=== PATIENT | female | born 1950 | race Caucasian/White ===

== ENCOUNTER 2018-11-28 05:59 | Inpatient (IN) ==
--- NOTE | 2018-11-11 11:17 | Anesthesiology Consultation ---
Date of Service November 11, 2018 Assessment & Plan (1) Encounter for pre-operative examination: Chart Review Chart Review: Patient seen in Pre Admission Testing Consults Requested none Teaching & Discussion Pre-Anesthesia Teaching/Discussion Notes: Instructed NPO after midnight before surgery, except medications with 15 cc of water. Medication instructions provided according to the PAT guidelines. History Surgery Operation Date: 11/28/18 10:35 Proposed Procedures p L3-L4, L4-L5 Decompression, L4-L5 Fusion - Jose Armando Dow DO Height/Weight Height: 5 ft 5 in Weight: 96.3 kg Allergies Allergy/AdvReac Type Severity Reaction Status Date / Time No Known Allergies Allergy Verified 10/27/18 09:21 Medications Home Medications Medication Instructions Recorded Confirmed Last Taken acetaminophen [Tylenol Extra 500 mg PO Q6H PRN 10/27/18 10/27/18 Unknown Strength] cholecalciferol (vitamin D3) 2,000 unit PO QAM 10/27/18 10/27/18 Unknown [Vitamin D3] gabapentin 100 mg PO TID 10/27/18 10/27/18 Unknown isosorbide mononitrate 30 mg PO QAM 10/27/18 10/27/18 Unknown levothyroxine 100 mcg PO QAM 10/27/18 10/27/18 Unknown metformin 500 mg PO BID 10/27/18 10/27/18 Unknown naproxen-esomeprazole [Vimovo] 1 tab PO BID 10/27/18 10/27/18 Unknown Past Medical History Medical History Chronic back pain Diabetes mellitus, type 2 NIDDM H/O paroxysmal supraventricular tachycardia History of endometriosis Hypothyroidism Osteoarthritis Spinal stenosis Spondylolisthesis Past Surgical History Surgical History History of abdominal surgery OPEN; R/T ENDOMETRIOSIS History of anesthesia reaction SLOW TO WAKE History of cardiac cath 2017 - [facility] - SVT - NO STENTS/ANGIOPLASTY - FOLLOWS W/ DR. RAMOS ([facility]) History of colonoscopy History of esophagogastroduodenoscopy (EGD) History of toe surgery LEFT GREAT TOE History of tonsillectomy Nausea and vomiting after administration of anesthetic agent Past Anesthesia History No Hx of Anesthesia Complications (Has been slightly slow to wake (Is tired the rest of the day)) and No Family Hx of Anesthesia Complications History of PONV Yes Motion Sickness Screening History of Motion Sickness: Yes Social History Smoking Status: Never smoker Do You Dip or Chew Tobacco: No Hx Alcohol Use: Yes Alcohol type: wine alcohol intake frequency: holidays/special occasions only Hx Substance Use: No substance use type: does not use Exercise / Class Metabolic Activity II 4-5 Yardwork/Stairs/Walk up hill (Able to climb FOS. Denies CP or SOB. ) Review of Systems Patient denies chest pain, shortness of breath, dyspnea on exertion, reflux, cough, wheezing, palpitations. +joint pain (Back, hands) Physical Exam Vital Signs BP: 137/95 P: 85 R: 18 T: 98.0 SPO2: 97% on RA ENMT Thyromental Distance: > or= 3.5 Finger Breadths (3.5) Mallampati Class: II Neck normal visual inspection and trachea midline; neck extension not limited Respiratory normal respiratory effort Auscultation: lungs clear to auscultation bilaterally Cardiovascular Rate/Rhythm: regular rate and regular rhythm Heart Sounds: no murmur Vessels: no carotid bruit Neurologic moves all extremities Psychiatric Orientation: alert and oriented x 3 Testing Electrocardiogram Date: 11/11/18 Findings: + NSR @ (78) Chest X-Ray Date: 11/11/18 Findings: + NAD FINDINGS: The bones soft tissues and hemidiaphragms are normal. The cardiomediastinal silhouette is normal. The lungs are clear. The pulmonary vasculature is normal. IMPRESSION: Negative chest. Stress Test Date: 12/26/16 Type: exercise Findings: + WNL Resting EF: 55% Resting LV Function: normal Resting RWMA: + none Valvular Disease: no significant valvular disease A maximum of 10.1 METS activity was achieved with 97% MPHR. During the exercise portion, the EKG showed sinus tachycardia with an ST-T change of 1.0mm and up- sloping ST depression. Impression: 1. Stress EKG is negative for myocardial ischemia at 97% of MPHR. 2. Stress ECHO is negative for RWMA. Cardiac Catheterization Date: 01/25/17 Findings: + normal Intervention: + none Left heart catheterization. Assessment: 1. Very mild CAD 2. Normal LV systolic function 3. No significant 4. No significant MR PLAN: 1. Maximize medical therapy for primary prevention. 2. Diet, exercise, and lifestyle modifications were discussed. 3. Follow up with interface developer 4-6 weeks post discharge. 4. She had some typical sounding symptoms which were relieved by Imdur. There may be a component of small vessel disease or spasm. We will likely continue the Imdur moving forward. Laboratory Results 11/11/18 11:45 11/11/18 11:45 Blood Type O Positive 11/11/18 11:45 Antibody Screen NEGATIVE 11/11/18 11:45 PT 10.0 Seconds (9.0-12.0) 11/11/18 11:45 INR 1.0 (0.9-1.1) 11/11/18 11:45 APTT 26.3 Seconds (21.0-31.0) 11/11/18 11:45 Urine Color Dark Yellow 11/11/18 Unknown Urine Appearance Clear (Clear) 11/11/18 Unknown Urine pH 5.0 (4.5-7.5) 11/11/18 Unknown Ur Specific [place] 1.030 (1.000-1.030) 11/11/18 Unknown Urine Protein Negative (Negative) 11/11/18 Unknown Urine Glucose (UA) Negative (Negative) 11/11/18 Unknown Urine Ketones Trace (Negative) H 11/11/18 Unknown Urine Nitrite Negative (Negative) 11/11/18 Unknown Ur Leukocyte Esterase 1+ (Negative) H 11/11/18 Unknown Urine WBC (Auto) 5-10 /hpf (0-5) H 11/11/18 Unknown Urine RBC (Auto) 0-4 /hpf (0-4) 11/11/18 Unknown U Hyaline Cast (Auto) 1-5 /lpf (0-5) 11/11/18 Unknown U Epithel Cells (Auto) >30 /lpf (0-5) H 11/11/18 Unknown Urine Bacteria (Auto) Negative (Negative) 11/11/18 Unknown
--- NOTE | 2018-11-11 11:17 | PAT Medication Instructions ---
Medication Instructions Date of Service November 11, 2018 Home Medications acetaminophen [Tylenol] 500 mg PO Q6H NEEDED cholecalciferol (vitamin D3) 2,000 unit PO QAM gabapentin 100 mg PO TID isosorbide mononitrate 30 mg PO QAM levothyroxine 100 mcg PO QAM metformin 500 mg PO BID naproxen-esomeprazole [Vimovo] 1 tab PO BID ASK your surgeon for instructions naproxen-esomeprazole [Vimovo] 1 tab PO BID - stop taking 1 week before surgery DO NOT take the morning of surgery cholecalciferol (vitamin D3) 2,000 unit PO QAM metformin 500 mg PO BID Take morning of surgery With a small sip of water, OTHERWISE NOTHING TO EAT OR DRINK AFTER MIDNIGHT: acetaminophen [Tylenol] 500 mg PO Q6H NEEDED gabapentin 100 mg PO TID isosorbide mononitrate 30 mg PO QAM levothyroxine 100 mcg PO QAM metformin 500 mg PO BID Take evening before surgery acetaminophen [Tylenol] 500 mg PO Q6H NEEDED gabapentin 100 mg PO TID metformin 500 mg PO BID Other Notes If you have any questions please call us at [phone] or [phone] or [phone] or [phone]
--- NOTE | 2018-11-11 12:25 | XRay Report ---
XR chest Pre-admission PA/Lat CLINICAL HISTORY: pat preoperative evaluation COMPARISON STUDY: No previous studies for comparison. FINDINGS: The bones soft tissues and hemidiaphragms are normal. The cardiomediastinal silhouette is n ormal. The lungs are clear. The pulmonary vasculature is normal. IMPRESSION: Negative chest. The above report was generated using voice recognition software. It may contain grammatical, syntax or spelling errors. Electronically signed by: Arnoldo Sarmiento M.D. 11/11/2018 12:23 PM
[2018-11-11 14:15] LABS: Basophils # (auto) 0.01 K/uL (0-0.2); Basophils % (auto) 0.1 %; Eosinophils % (auto) 2.9 %; Hematocrit (blood only) 38.9 % (37-47); Hemoglobin 12.8 g/dL (12.0-16.0); Immature Granulocytes # (auto) 0.01 K/uL (0.00-0.02); Immature Granulocytes % (auto) 0.1 %; Lymphocytes # (auto) 2.18 K/uL (1.2-3.4); Mean Corpuscular Hgb Conc 32.9 g/dL (32-36); Mean Corpuscular Volume 87.6 fL (80-100); Mean Platelet Volume 9.6 fL (7.4-10.4); Monocytes # (auto) 0.53 K/uL (0.11-0.59); Monocytes % (auto) 7.8 %; Neutrophils # (auto) 3.89 K/uL (1.4-6.5); Neutrophils % (auto) 57.1 %; Platelet Count 330 K/uL (130-400); RDW Coefficient of Variation 15.9 % (11.5-14.5); RDW Standard Deviation 51.6 fL (36.4-46.3); Red Blood Count 4.44 M/uL (4.2-5.4); White Blood Count 6.82 K/uL (4.8-10.8)
[2018-11-11 14:22] LABS: BUN Creatinine Ratio 26.6 (10-20); Calcium 9.1 mg/dl (8.5-10.1); Creatinine Clr Calc Pharmacy 77.5 ml/min; Est GFR (African American) 86.4; Est GFR (Non-African American) 74.6; Potassium 4.2 mmol/L (3.5-5.1)
[2018-11-11 14:30] LABS: Partial Thromboplastin Time 26.3 Seconds (21.0-31.0)
[2018-11-11 14:41] LABS: Appearance Urine Clear (Clear); Bacteria Urine Automated Negative (Negative); Blood Urine Negative (Negative); Color Urine Dark Yellow; Epithelial Cell Urine Auto >30 /lpf (0-5); Glucose Urine UA Negative (Negative); Ketones Urine Trace (Negative); Leukocyte Esterase Urine 1+ (Negative); Nitrite Urine Negative (Negative); Protein Urine Negative (Negative); RBC Urine Automated 0-4 /hpf (0-4); Urobilinogen Urine Negative (Negative)
[2018-11-11 14:45] LABS: Bilirubin Urine Negative (Negative); Ictotest Urine Negative (Negative)
[2018-11-28] MEDS ORDERED: LR 15ML/HR IV SCH (06:00)
[2018-11-28] MEDS ORDERED: CeleBREX 200 MG CAP PO SCH (06:00)
[2018-11-28] MEDS ORDERED: CEFAZOLIN 2000MG 2,000 MG/15 ML SYR IV SCH (06:00)
[2018-11-28] MEDS ORDERED: ACETAMINOPHEN 500 MG TAB PO SCH (06:00)
[2018-11-28] MEDS ORDERED: GABAPENTIN 300 MG PO SCH (06:00)
[2018-11-28] MEDS ORDERED: SCOPOLAMINE 1.5 MG TDSY TD SCH (06:00)
[2018-11-28] MEDS ORDERED: MIDAZOLAM HCL 1 MG/ML 2ML VIAL ONE (06:32)
[2018-11-28] MEDS ORDERED: fentaNYL citrate 100 MCG/2 ML VIAL ONE ×4 (06:32→09:48)
[2018-11-28] MEDS ORDERED: HYDROmorphone INJ 2 MG/ML SYR/VIAL ONE (06:32)
[2018-11-28] MEDS ORDERED: LIDOCAINE HCL 2% 2 ML VIAL/AMP(20MG/ML) INFIL ONE (06:33)
[2018-11-28] MEDS ORDERED: DEXAMETHASONE SOD INJ 4 MG/ML VIAL ONE (06:33)
[2018-11-28] MEDS ORDERED: PROPOFOL IV EMULSION 10 MG/ML 20 ML VIAL IV ONE (06:33)
[2018-11-28] MEDS ORDERED: ROCURONIUM BROMIDE 10 MG/ML 5 ML VIAL ONE (06:33)
[2018-11-28] MEDS ORDERED: ONDANSETRON INJ 2 MG/ML 2 ML VIAL ONE (06:33)
[2018-11-28] MEDS ORDERED: NEOSTIGMINE METHYLSULFATE 5 MG/5 ML SYR ONE (06:33)
[2018-11-28] MEDS ORDERED: GLYCOPYRROLATE 0.2 MG/ML VIAL ONE ×2 (06:33→09:38)
[2018-11-28] MEDS ORDERED: BUPIVACAINE/EPINEPHRINE 0.5% MPF 1:200,000 30 ML VIAL ONE (07:01)
[2018-11-28] MEDS ORDERED: BACITRACIN INJ 50,000 UNIT VIAL ONE (07:01)
[2018-11-28] MEDS ORDERED: PHENYLEPHRINE 100MCG/ML 5ML SYR IV PRN (07:17)
[2018-11-28] MEDS ORDERED: HYDROmorphone INJ 1 MG/ML SYRINGE IV PRN ×2 (07:17→12:09)
[2018-11-28] MEDS ORDERED: fentaNYL citrate 100 MCG/2 ML VIAL IV PRN (07:17)
[2018-11-28] MEDS ORDERED: ATROPINE SULFATE 0.1 MG/ML 10ML SYR IV PRN (07:17)
[2018-11-28] MEDS ORDERED: ONDANSETRON INJ 2 MG/ML 2 ML VIAL IV PRN ×2 (07:17→11:25)
[2018-11-28] MEDS ORDERED: MEPERIDINE HCL 25 MG/ML CARP IV PRN (07:17)
[2018-11-28] MEDS ORDERED: LABETALOL HCL IV 5 MG/ML 20ML IV PRN (07:17)
[2018-11-28] MEDS ORDERED: ePHEDrine sulfate 50 MG/ML AMP IV PRN (07:17)
--- NOTE | 2018-11-28 07:30 | History & Physical Bridge Note ---
Date of Service November 28, 2018 History & Physical Bridge Note I have examined the patient, reviewed the History & Physical and in the interval since the performance of the History & Physical I have noted the following changes of clinical significance: no changes noted
--- NOTE | 2018-11-28 07:31 | History & Physical Report ---
Date of Service November 28, 2018 Assessment & Plan (1) Neurogenic claudication due to lumbar spinal stenosis: L3-4 L4-5 decompression L4-5 fusion Present on Admission?: Yes History of Present Illness Chief Complaint: Back and bilateral leg pain Primary Care Provider: Franco Roberts This is a 68-year-old female presents with chronic persistent back and bilateral leg pain. After failing extensive course of nonoperative care she is here for surgical intervention. Allergies Allergy/AdvReac Type Severity Reaction Status Date / Time No Known Allergies Allergy Verified 11/28/18 06:17 Home Medications Home Medications Medication Instructions Recorded Confirmed Type acetaminophen [Tylenol Extra 500 mg PO Q6H PRN 10/27/18 11/28/18 History Strength] cholecalciferol (vitamin D3) 2,000 unit PO QAM 10/27/18 11/28/18 History [Vitamin D3] gabapentin 100 mg PO TID 10/27/18 11/28/18 History isosorbide mononitrate 30 mg PO QAM 10/27/18 11/28/18 History levothyroxine 100 mcg PO QAM 10/27/18 11/28/18 History metformin 500 mg PO BID 10/27/18 11/28/18 History naproxen-esomeprazole [Vimovo] 1 tab PO BID 10/27/18 11/28/18 History Past Med/Surg History Social History Preferred Language: Greek Communication Ability: Effective Chair Mender Required: No Beliefs That Will Affect Care: None Current Living Situation: Spouse Other Information That Helps Us Care for You: No Feels Safe at Home: Yes Safety Concerns: Feels Safe At This Time Smoking Status: Never smoker Hx Alcohol Use: Yes Hx Substance Use: No Physical Exam Vital Signs (Past 24 Hours): Last Vital Signs Temp 36.6 C 11/28/18 06:24 Pulse 87 11/28/18 06:24 Resp 18 11/28/18 06:24 BP 156/86 H 11/28/18 06:24 Pulse Ox 95 11/28/18 06:24 Results & Data Medications Administered Acetaminophen (Tylenol) 1,000 mg PO PREOP RAMA Stop: 11/28/18 18:00 Last Admin: 11/28/18 06:43 Dose: 1,000 mg Documented by: [id number] Celecoxib (Celebrex) 200 mg PO PREOP RAMA Stop: 11/28/18 18:00 Last Admin: 11/28/18 06:43 Dose: 200 mg Documented by: [id number] Gabapentin (Neurontin) 300 mg PO PREOP RAMA Stop: 11/28/18 18:00 Last Admin: 11/28/18 06:43 Dose: 300 mg Documented by: [id number] Lactated Ringer's (Lr) 1,000 mls @ 15 mls/hr IV .Q24H RAMA Stop: 11/29/18 05:59 Last Admin: 11/28/18 06:43 Dose: 15 mls/hr Documented by: [id number] Scopolamine (Transderm-Scop) 1.5 mg TD PREOP RAMA Stop: 11/28/18 18:00 Last Admin: 11/28/18 06:44 Dose: 1.5 mg Documented by: [id number]
[2018-11-28] MEDS ORDERED: LARYING-O-JET KIT (LTA) ONE (08:39)
[2018-11-28] MEDS ORDERED: FLOSEAL HEMOSTATIC MATRIX 10ML TOP ONE (09:34)
[2018-11-28] MEDS ORDERED: KETOROLAC 30 MG/ML VIAL ONE (09:38)
[2018-11-28] MEDS ORDERED: PHENYLEPHRINE 100MCG/ML 5ML SYR ONE (09:38)
--- NOTE | 2018-11-28 09:48 | Fluoroscopy Report ---
FL lumbar spine 2-3V CLINICAL HISTORY: 68 years-old Female presenting with L3=L5 DECOMPRESSION AND L4-L5 FUSION. TECHNIQUE: 2 fluoroscopic image(s) recorded as part of an intraoperative procedure. COMPARISON: None. FINDINGS/IMPRESSION: Posterior bilateral transpedicular screw and josseline fixation of L4-5 with L4 laminectomy and interbody s pacer. Surgical material projects over the sacrum. Please see surgical report for further details. Fluoroscopy dosage (mGy): 14.76. Fluoroscopy time: 15.7 seconds. Number or time of high level fluoroscopy (HLF), digital spot, or digital subtraction: 0. Electronically signed by: Ryne Velarde M.D. 11/28/2018 9:47 AM
--- NOTE | 2018-11-28 10:01 | Operative Report ---
Post Operative Report Pre & Post Diagnosis Operation Date: 11/28/18 07:45 Pre-Op Diagnosis: Lumbar Region Radiculopathy Post-Op Diagnosis: Lumbar Region Radiculopathy Procedure Operation Date: 11/28/18 07:45 Actual Procedures #1 lumbar decompression bilateral medial facetectomies foraminotomies L3-4 L4-5 per #2 posterior spinal fusion L3-4 L4-5 per #3 placement posterior ins trumentation L4-5. #4 interbody fusion L4-5 per #5 placement of titanium 13 x 22 mm cage at L4-5. #6 placement of local autograft in the posterior lateral gutters. #7 placement Feese collagen sponge, mass graft in the posterior gutters and ostial amp and interbody space. Surgeon Jose Armando Dow, Studio Receptionist None Estimated Blood Loss 475 Findings Consistent with Post-Op Diagnosis Specimens None Description of Procedure Patient was met with preoperatively case discussed all questions addressed. After informed consent obtained patient was taken to the operative suite underwent intubation placed in a prone position on the Santiago table on top of the Lucien frame. All bony prominences well-padded eyes inspected to ensure no external pressure placed upon the. This point the lumbar spine was prepped and draped in a normal sterile fashion. Sharp dissection the assistance pericardial performed down to and exposing the lamina and transverse process of L3 L4-5 bila terally. Massive facet hypertrophy was appreciated. Complete laminectomy of L4 partial laminectomy of L3 was performed and bilateral medial facetectomies foraminotomies to address severe stenosis. Pedicle screws were then placed in L4 and L5 bilaterally with assistance of fluoroscopy and process josseline placed. Through a trans-foraminal approach and left complete discectomy was performed in plate coated to subcortical B bone and a 13 x 22 mm titanium cage filled with ostium bone graft tapped in position. Rods were then compressed locked in final position bilaterally. The transverse process of L3-L4 fiber 2 subcortical mean bone. Infuse collagen sponge mass graft local autograft placed in the posterior gutters. 15 round TIFFANY drain inserted. Incision was then closed with 1 Vicryl fascia 2-0 Vicryl subtenons seen for Monocryl for Fransen closure Steri-Strip sterile dressings placed. Patient will continue to PACU stable condition. I attest to the content of the Intraoperative Record and any orders documented therein. Any exceptions are noted below.
[2018-11-28] MEDS ORDERED: ESMOLOL HCL INJ 10 MG/ML 10ML VIAL IV ONE (10:12)
[2018-11-28] MEDS ORDERED: VOLUVEN IN NSS IV ONE (10:13)
--- NOTE | 2018-11-28 10:28 | Anesthesiology Progress Note ---
Date of Service November 28, 2018 Anesthesia Post Procedure Vital Signs Vital Signs: Temp Pulse Pulse Resp BP Pulse Ox 11/28/18 10:20 75 12 142/91 H 100 11/28/18 10:10 80 16 125/76 99 11/28/18 10:04 36.6 C 79 18 135/70 99 11/28/18 06:24 36.6 C 87 18 156/86 H 95 Pain Intensity Lower Back: Pain Intensity: 0 Notes Mental Status: alert / awake / arousable Patient Amnestic to Procedure: Yes Nausea / Vomiting: adequately controlled Pain: adequately controlled Airway Patency, RR, SpO2: stable & adequate BP & HR: stable & adequate Hydration State: stable & adequate Anesthetic Complications: no major complications apparent and Pt Satisfied with anesthetic care
[2018-11-28] MEDS ORDERED: ALUMINUM/MAGNESIUM SUSP 30 ML UDC PO PRN (11:25)
[2018-11-28] MEDS ORDERED: MAGNESIUM HYDROXIDE SUSP 30 ML UDC PO PRN (11:25)
[2018-11-28] MEDS ORDERED: FAMOTIDINE 20 MG TAB PO PRN (11:25)
[2018-11-28] MEDS ORDERED: ONDANSETRON 4 MG TAB PO PRN (11:25)
[2018-11-28] MEDS ORDERED: SOD PHOSPHATE/SOD BIPHOSPHATE ENEMA 132 ML BTL PR PRN (11:25)
[2018-11-28] MEDS ORDERED: ACETAMINOPHEN 1,000 MG/100 ML VIAL IV PRN (11:25)
[2018-11-28] MEDS ORDERED: BISACODYL 10 MG SUPP PR PRN (11:25)
[2018-11-28] MEDS ORDERED: LORazepam 0.5 MG TAB PO PRN (11:25)
[2018-11-28] MEDS ORDERED: ACETAMINOPHEN 500 MG TAB PO PRN ×2 (11:25)
[2018-11-28] MEDS ORDERED: PROMETHAZINE HCL 12.5 MG in SODIUM CHLORIDE 0.9% 50 ML IV PRN (11:25)
[2018-11-28] MEDS ORDERED: DO NOT ADMINISTER FLU VACCINE PRN (11:25)
[2018-11-28] MEDS ORDERED: DO NOT ADMINISTER PNEUMOCOCCAL VACCINE PRN (11:25)
[2018-11-28] MEDS ORDERED: HYDROmorphone INJ 0.5 MG/0.5 ML SYR IV PRN (11:25)
[2018-11-28] MEDS ORDERED: METOCLOPRAMIDE HCL INJ 5 MG/ML 2 ML VIAL IV PRN (11:25)
[2018-11-28] MEDS ORDERED: LORazepam 0.5 MG/1 ML VIAL IV PRN (11:25)
[2018-11-28] MEDS ORDERED: GLUCAGON FOR INJ 1 MG VIAL SQ PRN (11:35)
[2018-11-28] MEDS ORDERED: GLUCOSE 40% GEL 15 GM TUBE PO PRN (11:35)
[2018-11-28] MEDS ORDERED: CARBOHYDRATES FOR HYPOGLYCEMIA PO PRN (11:35)
[2018-11-28] MEDS ORDERED: GLUCOSE 10 TABS/TUBE PO PRN (11:35)
[2018-11-28] MEDS ORDERED: DEXTROSE 50% 50 ML SYRINGE IV PRN (11:35)
[2018-11-28] MEDS: SODIUM CHLORIDE 0.9% 1000ML 1,000 ML IV SCH ×2 (11:56→19:05)
--- NOTE | 2018-11-28 12:06 | Internal Medicine Consult Note ---
Date of Consultation November 28, 2018 Assessment & Plan (1) Neurogenic claudication due to lumbar spinal stenosis: Status post lumbar decompression involving L3/4, L4/5 and fusion involving L4/5 Management as per Orth of Present on Admission?: Yes (2) Status post lumbar spine operative procedure for decompression of spinal cord: Status post lumbar decompression involving L3/4, L4/5 and fusion involving L4/5 Has minimal pain at the back Does not have any radiculopathic pain Management as per Orth Present on Admission?: Yes (3) Diabetes type 2, uncontrolled: Has been on metformin as an outpatient Check blood sugar and will put her on sliding scale insulin coverage Hold metformin now Check hemoglobin A1c tomorrow (4) Hypothyroidism (acquired): Continue replacement (5) SVT (supraventricular tachycardia): Heart rate remains controlled and regular rhythm Will check electrolytes DVT prophylaxis as per orthopedic Dr. Sky will follow this patient from tomorrow. History of Present Illness Reason for Consultation: Medical management following lumbar surgery Attending Physician: Jose Armando Dow, DO History of Present Illness She is a 68 years old female with significant past medical history of diabetes type 2 on metformin, hypo-thyroidism and SVT apparently underwent lumbar decompression and fusion by Dr. Dow today. She has had preop evaluation before surgery and her apparent blood test including chest x-ray and EKG were unremarkable. She complains to have some pain at the back but does not have any other significant symptoms she denies any chest pain, shortness of breath., Palpitation, headache any blurred vision or any other neuro symptoms, abdominal pain nausea and/or vomiting. Allergies Allergy/AdvReac Type Severity Reaction Status Date / Time No Known Allergies Allergy Verified 11/28/18 06:17 Home Medications Home Medications Medication Instructions Recorded Confirmed Type acetaminophen [Tylenol Extra 500 mg PO Q6H PRN 10/27/18 11/28/18 History Strength] cholecalciferol (vitamin D3) 2,000 unit PO QAM 10/27/18 11/28/18 History [Vitamin D3] gabapentin 100 mg PO TID 10/27/18 11/28/18 History isosorbide mononitrate 30 mg PO QAM 10/27/18 11/28/18 History levothyroxine 100 mcg PO QAM 10/27/18 11/28/18 History metformin 500 mg PO BID 10/27/18 11/28/18 History naproxen-esomeprazole [Vimovo] 1 tab PO BID 10/27/18 11/28/18 History Patient History Social History Preferred Language: Burundian Communication Ability: Effective House Wirer Helper Required: No Beliefs That Will Affect Care: None Current Living Situation: Spouse Other Information That Helps Us Care for You: No Feels Safe at Home: Yes Safety Concerns: Feels Safe At This Time Smoking Status: Never smoker Hx Alcohol Use: Yes Hx Substance Use: No Review of Systems No apparent distress at rest. Review of systems as in history of present illness Physical Exam Vital Signs (Past 24 Hours): Last Vital Signs Temp 36.4 C L 11/28/18 11:43 Pulse 70 11/28/18 11:43 Resp 18 11/28/18 11:43 BP 113/60 11/28/18 11:43 Pulse Ox 97 11/28/18 11:43 Physical Exam: Lying in bed comfortably Constitutional: WD/WN, vitals as above well developed and well nourished; no acute distress Eyes: PERRL, conjunctivae normal, anicteric sclerae ENMT: external ear and nose normal, oropharynx normal Neck: trachea midline, no thyromegaly Respiratory: normal respiratory effort, lungs clear to auscultation Cardiovascular: Rate/Rhythm: regular rate and regular rhythm Heart Sounds: normal S1 and normal S2; no murmur Gastrointestinal (Abdomen): normal bowel sounds, soft, nontender, no hepatosplenomegaly Musculoskeletal: No acute arthritis involving any joints Neurologic: PERRL, EOMI, accommodation nl, no face palsy, no dysarthria Psychiatric: A+Ox3, euthymic affect Results & Data Medications Administered Current Inpatient Medications Acetaminophen (Tylenol) 1,000 mg PO Q8H PRN PRN Reason: MILD Pain Rating 1,2,3 Stop: 12/28/18 11:24 Acetaminophen (Tylenol) 500 mg PO Q6H PRN PRN Reason: Pain Stop: 12/28/18 11:24 Al Hydrox/Mg Hydrox/Simethicone (Maalox) 30 ml PO Q6H PRN PRN Reason: Dyspepsia Stop: 12/28/18 11:24 Bisacodyl (Dulcolax) 10 mg CO DAILY PRN PRN Reason: Constipation Stop: 12/28/18 11:24 Dextrose (Dextrose 50%) 25 - 50 ml IV UD PRN; Protocol PRN Reason: Hypoglycemia Protocol Stop: 12/28/18 11:34 Diphenhydramine HCl (Benadryl Capsule) 25 mg PO Q6H PRN PRN Reason: Allergic Rhinitis/Insomnia Stop: 12/28/18 11:24 Famotidine (Pepcid) 20 mg PO Q12H PRN PRN Reason: Dyspepsia Stop: 12/28/18 11:24 Gabapentin (Neurontin) 100 mg PO TID RAMA Stop: 12/28/18 13:59 Glucagon (Glucagen) 1 mg SQ UD PRN; Protocol PRN Reason: Hypoglycemia Protocol Stop: 12/28/18 11:34 Glucose (Dex4 Glucose) 4 - 8 tabs PO UD PRN; Protocol PRN Reason: Hypoglycemia Protocol Stop: 12/28/18 11:34 Glucose (Glucose 40%) 15 - 30 gm PO UD PRN; Protocol PRN Reason: Hypoglycemia Protocol Stop: 12/28/18 11:34 Hydromorphone HCl (Dilaudid) 0.5 - 1 mg IV Q3H PRN PRN Reason: Pain Stop: 12/12/18 11:24 Hydroxyzine HCl (Vistaril) 25 mg PO Q8H PRN PRN Reason: Anxiety Stop: 12/28/18 11:24 Cefazolin Sodium (Ancef 2000mg) 2,000 mg in 15 mls @ 3.75 mls/min IV Q8H RAMA; Protocol Stop: 11/28/18 19:28 Acetaminophen (Ofirmev) 1,000 mg in 100 mls @ 400 mls/hr IV Q8 PRN PRN Reason: MILD Pain Rating 1,2,3 Stop: 12/28/18 11:24 Lorazepam (Ativan) 0.5 mg in 1 mls @ 0.5 mls/min IV Q8H PRN PRN Reason: Sedation/Anxiety Stop: 12/28/18 11:24 Sodium Chloride (Nss 1000ml) 1,000 mls @ 150 mls/hr IV .Q6H40M [facility] Stop: 12/28/18 11:24 Last Admin: 11/28/18 11:56 Dose: 150 mls/hr Documented by: Promethazine HCl 12.5 mg/ (Sodium Chloride) 50.5 mls @ 204 mls/hr IV Q6H PRN PRN Reason: Nausea &/or Vomiting Stop: 12/28/18 11:24 Insulin Aspart (Novolog Flexpen) 0 units SC ACHS [facility] Stop: 12/28/18 16:29 Isosorbide [facility]onitrate ([facility]ur Extended Rel) [facility] [place]: 12/29/18 08:59 Ketorolac Tromethamine (Toradol) 15 mg IV Q6H [facility] Stop: 11/29/18 05:26 Levothyroxine Sodium (Synthroid) 100 mcg PO [facility] Stop: 12/29/18 08:59 Lorazepam (Ativan) 0.5 mg PO Q8H PRN PRN Reason: Sedation/Anxiety Stop: 12/28/18 11:24 Magnesium Hydroxide (Milk Of Magnesia) 30 ml PO DAILY PRN PRN Reason: Constipation Stop: 12/28/18 11:24 Metoclopramide HCl (Reglan) 10 mg IV Q6H PRN PRN Reason: Nausea &/or Vomiting Stop: 12/28/18 11:24 Miscellaneous (Pneumococcal Vacc, Do Not Administer) 1 ea N/A PRN PRN PRN Reason: Notification Stop: 12/28/18 11:24 Miscellaneous (Flu Vaccine, Do Not Administer) 1 ea N/A PRN PRN PRN Reason: Notification Stop: 12/28/18 11:24 Miscellaneous (Carbohydrates For Hypoglycemia) 15 - 30 gm PO UD PRN PRN Reason: Hypoglycemia Treatment Stop: 12/28/18 11:34 Non-Formulary Medication (Cholecalciferol (Vitamin D3) [Vitamin D3]) 2,000 units PO [facility] Stop: 12/29/18 08:59 Non-Formulary Medication (Naproxen-Esomeprazole [Vimovo]) 1 tab PO BID [facility] Stop: 12/28/18 20:59 Ondansetron HCl (Zofran) 4 mg IV Q6H PRN PRN Reason: Nausea &/or Vomiting Stop: 12/28/18 11:24 Ondansetron HCl (Zofran) 4 mg PO Q6H PRN PRN Reason: Nausea Stop: 12/28/18 11:24 Oxycodone HCl (Roxicodone Immediate Rel) 5 - 10 mg PO Q4H PRN PRN Reason: Moderate-Severe Pain Stop: 12/12/18 11:24 Polyethylene Glycol (Miralax Powder Packet) 17 gm PO Q6 RAMA Stop: 12/29/18 05:59 Senna/Docusate Sodium (Senokot S) 2 tab PO HS RAMA Stop: 12/28/18 20:59 Sodium Biphosphate/Sodium Phosphate (Fleet Enema) 132 ml CO ONE PRN PRN Reason: Constipation Stop: 12/28/18 11:24 Tramadol HCl (Ultram) 50 - 100 mg PO Q4H PRN PRN Reason: Moderate-Severe pain Stop: 12/28/18 11:24
[2018-11-28] MEDS: INSULIN ASPART 100 UNITS/ML 3 ML PEN SC SCH ×3 (13:12→21:39)
[2018-11-28] MEDS: KETOROLAC TROMETHAMINE 15 MG/ML VIAL IV SCH ×2 (13:42→21:28)
[2018-11-28] MEDS ORDERED: CHECK SCOPOLAMINE PATCH PLACEMENT SCH (16:00)
[2018-11-28] MEDS: TRAMADOL HCL 50 MG TABLET PO PRN ×2 (16:02→21:29)
[2018-11-28] MEDS: CEFAZOLIN 2000MG 2,000 MG/15 ML SYR IV SCH (16:13)
[2018-11-28] MEDS ORDERED: ESOMEPRAZOLE PO SCH (21:00)
[2018-11-28] MEDS ORDERED: NAPROXEN PO SCH (21:00)
[2018-11-28] MEDS: GABAPENTIN 100 MG CAP PO SCH ×2 (21:30→21:31)
[2018-11-28] MEDS: DOCUSATE SODIUM/SENNA 50/8.6MG TAB PO SCH (22:12)
[2018-11-29] MEDS: CEFAZOLIN 2000MG 2,000 MG/15 ML SYR IV SCH (00:16)
[2018-11-29] MEDS: SODIUM CHLORIDE 0.9% 1000ML 1,000 ML IV SCH (00:17)
[2018-11-29] MEDS: KETOROLAC TROMETHAMINE 15 MG/ML VIAL IV SCH ×2 (02:17→07:22)
[2018-11-29] MEDS: LEVOTHYROXINE SODIUM 100 MCG TABLET PO SCH (05:50)
[2018-11-29] MEDS: POLYETHYLENE (MIRALAX) 17 GM PACK PO SCH ×4 (05:50→23:45)
[2018-11-29 06:19] LABS: Basophils # (auto) 0.01 K/uL (0-0.2); Basophils % (auto) 0.1 %; Eosinophils # (auto) 0.01 K/uL (0-0.5); Eosinophils % (auto) 0.1 %; Hematocrit (blood only) 27.2 % (37-47); Hemoglobin 8.9 g/dL (12.0-16.0); Immature Granulocytes # (auto) 0.03 K/uL (0.00-0.02); Immature Granulocytes % (auto) 0.3 %; Lymphocytes # (auto) 1.45 K/uL (1.2-3.4); Lymphocytes % (auto) 15.8 %; Mean Corpuscular Hgb Conc 32.7 g/dL (32-36); Mean Corpuscular Volume 87.7 fL (80-100); Mean Platelet Volume 9.4 fL (7.4-10.4); Monocytes # (auto) 0.74 K/uL (0.11-0.59); Monocytes % (auto) 8.1 %; Neutrophils # (auto) 6.92 K/uL (1.4-6.5); Neutrophils % (auto) 75.6 %; Platelet Count 231 K/uL (130-400); RDW Standard Deviation 51.3 fL (36.4-46.3); White Blood Count 9.16 K/uL (4.8-10.8)
[2018-11-29 06:47] LABS: RBC Morphology Unremarkable
[2018-11-29 06:51] LABS: BUN Creatinine Ratio 21.8 (10-20); Calcium 7.6 mg/dl (8.5-10.1); Creatinine Clr Calc Pharmacy 85.6 ml/min; Est GFR (African American) 97.8; Est GFR (Non-African American) 84.4; Magnesium 1.9 mg/dl (1.8-2.4); Potassium 4.1 mmol/L (3.5-5.1)
[2018-11-29 07:12] LABS: Estimated Average Glucose 143 mg/dl; Hemoglobin A1C 6.6 % (4.5-5.6)
--- NOTE | 2018-11-29 08:32 | Orthopedic Progress Note ---
Date of Service November 29, 2018 Assessment & Plan (1) Status post lumbar spine operative procedure for decompression of spinal cord: Postoperative day 1 lumbar decompression fusion L4-5. She is doing well. She will start physical therapy this morning. Maintain TIFFANY drain. DVT prophylaxis is in the form of teds and SCDs. Continue with pain control. Anticipate discharge home Saturday. Supervising Physician Co-Signing Physician Notes Dr. Jose Armando Dow Jhon Strickland is postoperative day 1 lumbar decompression L3 through 5 with instrumented fusion of L4-5. She states she has some increase in her lower back pain this morning but no radicular leg pain. TIFFANY drain output was 190 cc. H&H is stable. She has been up and ambulatory to the restroom. No new complaints. Physical Exam Vital Signs (Past 24 Hours): Last Vital Signs Temp 37.1 C 11/29/18 08:27 Pulse 68 11/29/18 08:27 Resp 16 11/29/18 08:27 BP 127/81 11/29/18 08:27 Pulse Ox 92 11/29/18 08:27 Physical Exam: Alert and oriented x3. No obvious distress. Lumbar dressing is clean dry and intact. Lower extremities NATASHA hose intact bilaterally. Calves are soft nontender bilate rally. Strength is intact bilateral lower extremities. Constitutional: well developed Eyes: normal visual josue by confrontation ENMT: external ear and nose normal, oropharynx normal Neck: normal visual inspection Respiratory: normal respiratory effort Cardiovascular: Rate/Rhythm: regular rate Extremities: normal capillary refill Gastrointestinal (Abdomen): Inspection/Auscultation: abdomen normal to inspection Musculoskeletal: no cyanosis or clubbing, extremities motor strength 5/5 Skin: no rashes, warm and dry Neurologic: patellar DTR's 2+ bilat, sensation intact deep tendon reflexes 2+ bilaterally and moves all extremities Psychiatric: A+Ox3, euthymic affect
[2018-11-29] MEDS: INSULIN ASPART 100 UNITS/ML 3 ML PEN SC SCH ×4 (08:58→21:33)
[2018-11-29] MEDS: ISOSORBIDE MONO EXTENDED REL 30 MG TABCR PO SCH (08:58)
[2018-11-29] MEDS: GABAPENTIN 100 MG CAP PO SCH ×3 (08:58→20:20)
[2018-11-29] MEDS: CHOLECALCIFEROL 1,000 UNITS TAB PO SCH (08:58)
[2018-11-29] MEDS: OXYCODONE HCL IR 5 MG TAB (IMMEDIATE RELEASE) PO PRN ×3 (09:01→20:21)
--- NOTE | 2018-11-29 11:01 | Anesthesiology Progress Note ---
Date of Service November 29, 2018 Anesthesia Post Procedure Vital Signs Vital Signs: Temp Pulse Pulse Resp BP BP Pulse Ox 11/29/18 08:27 37.1 C 68 16 127/81 92 11/29/18 03:22 36.9 C 76 16 122/75 91 11/28/18 22:57 36.6 C 82 16 114/69 95 11/28/18 19:08 36.8 C 103 H 18 118/69 96 11/28/18 15:33 36.6 C 87 18 101/62 95 11/28/18 14:22 36.6 C 83 14 106/65 98 11/28/18 13:14 78 18 119/70 98 11/28/18 12:10 36.3 C L 76 14 118/72 99 11/28/18 11:43 36.4 C L 70 18 113/60 97 11/28/18 11:10 36.5 C 72 18 128/74 98 Notes Mental Status: alert / awake / arousable Patient Amnestic to Procedure: Yes Nausea / Vomiting: adequately controlled Pain: adequately controlled Airway Patency, RR, SpO2: stable & adequate BP & HR: stable & adequate Hydration State: stable & adequate Anesthetic Complications: no major complications apparent and Pt Satisfied with anesthetic care
--- NOTE | 2018-11-29 17:34 | Hospitalist Progress Note ---
Date of Service November 29, 2018 Assessment & Plan (1) Status post lumbar spine operative procedure for decompression of spinal cord: POD#1, pain controlled, continue SCDs per Ortho Recs for DVT prophylaxis. Continue PT/OT (2) Diabetes type 2, uncontrolled: Outpatient metformin has been held, sugars are controlled with carb coverage with NovoLog. Continue current treatment plan. A1c is reflective of good control. (3) Hypothyroidism (acquired): Slightly low TSH, however, patient had some weight changes recently and has not had a TSH checked in 2 years time. Continue Synthroid replacement at current dose of 100 mcg daily and recommend primary care follow-up after healing from this operation to recheck TSH. She verbalized understanding with intent to comply. (4) DVT prophylaxis: SCDs Full Dispo-likely to home on Saturday per Orthopedics. Darlin Sky DO [facility] Hospitalist Subjective Pain is controlled, no nausea, tolerating p.o. She has been up and ambulating. Michael out today. TIFFANY drain continues in place. Glucose is controlled with current carb coverage. Physical Exam Vital Signs (Past 24 Hours): Last Vital Signs Temp 37.0 C 11/29/18 14:53 Pulse 69 11/29/18 14:53 Resp 16 11/29/18 14:53 BP 112/70 11/29/18 14:53 Pulse Ox 95 11/29/18 14:53 CONSTITUTIONAL: WNWD, vitals as above, generally well-appearing EYES: normal conjuctivae, no scleral icterus ENT: MMM RESPIRATORY: clear to auscultation bilaterally, no crackles, rales or wheezes, normal respiratory effort CARDIOVASCULAR: regular rate and rhythm, S1 and 2 heard without murmurs, gallops or rubs, no JVD, no peripheral edema GASTROINTESTINAL: normal bowel sounds, soft, nontender, nondistended MUSCULOSKELETAL: limited ROM 2/2 recent back surgery, able to move all extremities with no gross focal deficits. Head is normocephalic and atraumatic SKIN: warm and dry, back incision not visualized-covered with dry dressing that is clean, dry and intact. TIFFANY drain in place. NEUROLOGIC: CN 2-12 grossly intact, no sensory deficit, normal cognition PSYCHIATRIC: alert cooperative and oriented to person, place and time. Results & Data Laboratory Results Short CBC 11/29/18 Range/Units 05:27 WBC 9.16 (4.8-10.8) K/uL Hgb 8.9 L (12.0-16.0) g/dL Hct 27.2 L (37-47) % Plt Count 231 (130-400) K/uL BMP 11/29/18 05:27 Sodium 142 Potassium 4.1 Chloride 110 H Carbon Dioxide 26 BUN 16 Creatinine 0.74 Glucose 125 H Calcium 7.6 L Medications Administered Current Inpatient Medications Acetaminophen (Tylenol) 1,000 mg PO Q8H PRN PRN Reason: MILD Pain Rating 1,2,3 Stop: 12/28/18 11:24 Acetaminophen (Tylenol) 500 mg PO Q6H PRN PRN Reason: Pain Stop: 12/28/18 11:24 Al Hydrox/Mg Hydrox/Simethicone (Maalox) 30 ml PO Q6H PRN PRN Reason: Dyspepsia Stop: 12/28/18 11:24 Bisacodyl (Dulcolax) 10 mg GA DAILY PRN PRN Reason: Constipation Stop: 12/28/18 11:24 Dextrose (Dextrose 50%) 25 - 50 ml IV UD PRN; Protocol PRN Reason: Hypoglycemia Protocol Stop: 12/28/18 11:34 Diphenhydramine HCl (Benadryl Capsule) 25 mg PO Q6H PRN PRN Reason: Allergic Rhinitis/Insomnia Stop: 12/28/18 11:24 Famotidine (Pepcid) 20 mg PO Q12H PRN PRN Reason: Dyspepsia Stop: 12/28/18 11:24 Gabapentin (Neurontin) 100 mg PO TID RAMA Stop: 12/28/18 13:59 Last Admin: 11/29/18 13:17 Dose: 100 mg Documented by: Glucagon (Glucagen) 1 mg SQ UD PRN; Protocol PRN Reason: Hypoglycemia Protocol Stop: 12/28/18 11:34 Glucose (Dex4 Glucose) 4 - 8 tabs PO UD PRN; Protocol PRN Reason: Hypoglycemia Protocol Stop: 12/28/18 11:34 Glucose (Glucose 40%) 15 - 30 gm PO UD PRN; Protocol PRN Reason: Hypoglycemia Protocol Stop: 12/28/18 11:34 Hydromorphone HCl (Dilaudid) 0.5 mg IV Q3H PRN PRN Reason: Pain Stop: 12/12/18 11:24 Hydromorphone HCl (Dilaudid) 1 mg IV Q3H PRN PRN Reason: Pain Stop: 12/12/18 12:08 Hydroxyzine HCl (Vistaril) 25 mg PO Q8H PRN PRN Reason: Anxiety Stop: 12/28/18 11:24 Acetaminophen (Ofirmev) 1,000 mg in 100 mls @ 400 mls/hr IV Q8 PRN PRN Reason: MILD Pain Rating 1,2,3 Stop: 12/28/18 11:24 Lorazepam (Ativan) 0.5 mg in 1 mls @ 0.5 mls/min IV Q8H PRN PRN Reason: Sedation/Anxiety Stop: 12/28/18 11:24 Promethazine HCl 12.5 mg/ (Sodium Chloride) 50.5 mls @ 204 mls/hr IV Q6H PRN PRN Reason: Nausea &/or Vomiting Stop: 12/28/18 11:24 Insulin Aspart (Novolog Flexpen) 0 units SC ACHS [facility] Stop: 12/28/18 16:29 Last Admin: 11/29/18 13:17 Dose: 1 units Documented by: Isosorbide Mononitrate (Imdur Extended Rel) 30 mg PO QAM [facility] Stop: 12/29/18 08:59 Last Admin: 11/29/18 08:58 Dose: 30 mg Documented by: Levothyroxine Sodium (Synthroid) 100 mcg PO DAILYBB [facility] Stop: 12/29/18 06:29 Last Admin: 11/29/18 05:50 Dose: 100 mcg Documented by: Lorazepam (Ativan) 0.5 mg PO Q8H PRN PRN Reason: Sedation/Anxiety Stop: 12/28/18 11:24 Magnesium Hydroxide (Milk Of Magnesia) 30 ml PO DAILY PRN PRN Reason: Constipation Stop: 12/28/18 11:24 Metoclopramide HCl (Reglan) 10 mg IV Q6H PRN PRN Reason: Nausea &/or Vomiting Stop: 12/28/18 11:24 Miscellaneous (Pneumococcal Vacc, Do Not Administer) 1 ea N/A PRN PRN PRN Reason: Notification Stop: 12/28/18 11:24 Miscellaneous (Flu Vaccine, Do Not Administer) 1 ea N/A PRN PRN PRN Reason: Notification Stop: 12/28/18 11:24 Miscellaneous (Carbohydrates For Hypoglycemia) 15 - 30 gm PO UD PRN PRN Reason: Hypoglycemia Treatment Stop: 12/28/18 11:34 Naproxen (Naprosyn) 375 mg PO BID [facility] Stop: 12/29/18 20:59 Ondansetron HCl (Zofran) 4 mg IV Q6H PRN PRN Reason: Nausea &/or Vomiting Stop: 12/28/18 11:24 Ondansetron HCl (Zofran) 4 mg PO Q6H PRN PRN Reason: Nausea Stop: 12/28/18 11:24 Oxycodone HCl (Roxicodone Immediate Rel) 5 - 10 mg PO Q4H PRN PRN Reason: Moderate-Severe Pain Stop: 12/12/18 11:24 Last Admin: 11/29/18 13:59 Dose: 5 mg Documented by: Pantoprazole Sodium (Protonix) 40 mg PO BID [facility]; Protocol Stop: 12/29/18 20:59 Polyethylene Glycol (Miralax Powder Packet) 17 gm PO Q6 [facility] Stop: 12/29/18 05:59 Last Admin: 11/29/18 11:16 Dose: 17 gm Documented by: Senna/Docusate Sodium (Senokot S) 2 tab PO HS [facility] Stop: 12/28/18 20:59 Last Admin: 11/28/18 22:12 Dose: 2 tab Documented by: Sodium Biphosphate/Sodium Phosphate (Fleet Enema) 132 ml GA ONE PRN PRN Reason: Constipation Stop: 12/28/18 11:24 Tramadol HCl (Ultram) 50 - 100 mg PO Q4H PRN PRN Reason: Moderate-Severe pain Stop: 12/28/18 11:24 Last Admin: 11/28/18 21:29 Dose: 100 mg Documented by: Vitamin D (Vitamin D3) 2,000 units PO QAM [facility] Stop: 12/29/18 08:59 Last Admin: 11/29/18 08:58 Dose: 2,000 units Documented by:
[2018-11-29] MEDS: PANTOprazole 40 MG TAB PO SCH (20:20)
[2018-11-29] MEDS: NAPROXEN 375 MG TAB PO SCH (20:20)
[2018-11-29] MEDS: DOCUSATE SODIUM/SENNA 50/8.6MG TAB PO SCH (20:20)
[2018-11-29] MEDS ORDERED: DOCUSATE SODIUM/SENNA 50/8.6MG TAB PO SCH (21:00)
[2018-11-30] MEDS: POLYETHYLENE (MIRALAX) 17 GM PACK PO SCH ×3 (06:08→17:40)
[2018-11-30] MEDS: LEVOTHYROXINE SODIUM 100 MCG TABLET PO SCH (06:08)
[2018-11-30] MEDS: OXYCODONE HCL IR 5 MG TAB (IMMEDIATE RELEASE) PO PRN ×3 (08:45→18:23)
[2018-11-30] MEDS: CHOLECALCIFEROL 1,000 UNITS TAB PO SCH (08:46)
[2018-11-30] MEDS: ISOSORBIDE MONO EXTENDED REL 30 MG TABCR PO SCH (08:46)
[2018-11-30] MEDS: PANTOprazole 40 MG TAB PO SCH ×2 (08:46→20:55)
[2018-11-30] MEDS: NAPROXEN 375 MG TAB PO SCH ×2 (08:46→20:55)
[2018-11-30] MEDS: GABAPENTIN 100 MG CAP PO SCH ×3 (08:46→20:55)
[2018-11-30] MEDS: INSULIN ASPART 100 UNITS/ML 3 ML PEN SC SCH ×4 (10:03→20:56)
--- NOTE | 2018-11-30 11:33 | Orthopedic Progress Note ---
Date of Service November 30, 2018 Assessment & Plan (1) Neurogenic claudication due to lumbar spinal stenosis: At this time we will continue physical therapy monitor TIFFANY output anticipate discharge home tomorrow. Present on Admission?: Yes (2) Acute blood loss as cause of postoperative anemia: Subjective Patient states her back pain is controlled leg symptoms are markedly improved. Physical Exam Vital Signs (Past 24 Hours): Last Vital Signs Temp 37.1 C 11/30/18 07:00 Pulse 73 11/30/18 07:00 Resp 16 11/30/18 07:00 BP 112/72 11/30/18 07:00 Pulse Ox 91 11/30/18 07:00 Physical Exam: On exam she is good strength testing appears comfortable.
--- NOTE | 2018-11-30 16:07 | Hospitalist Progress Note ---
Date of Service November 30, 2018 Assessment & Plan (1) Status post lumbar spine operative procedure for decompression of spinal cord: POD#2, pain controlled, continue SCDs per Ortho Recs for DVT prophylaxis. Continue PT/OT (2) Diabetes type 2, uncontrolled: Outpatient metformin has been held, sugars are controlled with carb coverage with NovoLog. Continue current treatment plan. A1c is reflective of good control. (3) Hypothyroidism (acquired): Slightly low TSH, however, patient had some weight changes recently and has not had a TSH checked in 2 years time. Continue Synthroid replacement at current dose of 100 mcg daily and recommend primary care follow-up after healing from this operation to recheck TSH. She verbalized understanding with intent to comply. (4) DVT prophylaxis: SCDs Full Dispo-likely to home in am [facility] Doing well, has some pain she didn't expect but she is discussing this with Dr. Dow and it is currently controlled. She is moving around Blood sugar is controlled with current regimen. Physical Exam Vital Signs (Past 24 Hours): Last Vital Signs Temp 36.9 C 11/30/18 15:15 Pulse 75 11/30/18 15:15 Resp 16 11/30/18 15:15 BP 129/77 11/30/18 15:15 Pulse Ox 97 11/30/18 15:15 CONSTITUTIONAL: WNWD, vitals as above, generally well-appearing EYES: normal conjuctivae, no scleral icterus ENT: MMM RESPIRATORY: clear to auscultation bilaterally, no crackles, rales or wheezes, normal respiratory effort CARDIOVASCULAR: regular rate and rhythm, S1 and 2 heard without murmurs, gallops or rubs, no JVD, no peripheral edema GASTROINTESTINAL: normal bowel sounds, soft, nontender, nondistended MUSCULOSKELETAL: limited ROM 2/2 recent back surgery, able to move all extremities with no gross focal deficits. Head is normocephalic and atraumatic SKIN: warm and dry, back incision not visualized-covered with dry dressing that is clean, dry and intact. TIFFANY drain in place. NEUROLOGIC: CN 2-12 grossly intact, no sensory deficit, normal cognition PSYCHIATRIC: alert cooperative and oriented to person, place and time. Results & Data Medications Administered Current Inpatient Medications Acetaminophen (Tylenol) 1,000 mg PO Q8H PRN PRN Reason: MILD Pain Rating 1,2,3 Stop: 12/28/18 11:24 Acetaminophen (Tylenol) 500 mg PO Q6H PRN PRN Reason: Pain Stop: 12/28/18 11:24 Al Hydrox/Mg Hydrox/Simethicone (Maalox) 30 ml PO Q6H PRN PRN Reason: Dyspepsia Stop: 12/28/18 11:24 Bisacodyl (Dulcolax) 10 mg IN DAILY PRN PRN Reason: Constipation Stop: 12/28/18 11:24 Dextrose (Dextrose 50%) 25 - 50 ml IV UD PRN; Protocol PRN Reason: Hypoglycemia Protocol Stop: 12/28/18 11:34 Diphenhydramine HCl (Benadryl Capsule) 25 mg PO Q6H PRN PRN Reason: Allergic Rhinitis/Insomnia Stop: 12/28/18 11:24 Famotidine (Pepcid) 20 mg PO Q12H PRN PRN Reason: Dyspepsia Stop: 12/28/18 11:24 Gabapentin (Neurontin) 100 mg PO TID RAMA Stop: 12/28/18 13:59 Last Admin: 11/30/18 14:00 Dose: 100 mg Documented by: Glucagon (Glucagen) 1 mg SQ UD PRN; Protocol PRN Reason: Hypoglycemia Protocol Stop: 12/28/18 11:34 Glucose (Dex4 Glucose) 4 - 8 tabs PO UD PRN; Protocol PRN Reason: Hypoglycemia Protocol Stop: 12/28/18 11:34 Glucose (Glucose 40%) 15 - 30 gm PO UD PRN; Protocol PRN Reason: Hypoglycemia Protocol Stop: 12/28/18 11:34 Hydromorphone HCl (Dilaudid) 0.5 mg IV Q3H PRN PRN Reason: Pain Stop: 12/12/18 11:24 Hydromorphone HCl (Dilaudid) 1 mg IV Q3H PRN PRN Reason: Pain Stop: 12/12/18 12:08 Hydroxyzine HCl (Vistaril) 25 mg PO Q8H PRN PRN Reason: Anxiety Stop: 12/28/18 11:24 Acetaminophen (Ofirmev) 1,000 mg in 100 mls @ 400 mls/hr IV Q8 PRN PRN Reason: MILD Pain Rating 1,2,3 Stop: 12/28/18 11:24 Lorazepam (Ativan) 0.5 mg in 1 mls @ 0.5 mls/min IV Q8H PRN PRN Reason: Sedation/Anxiety Stop: 12/28/18 11:24 Promethazine HCl 12.5 mg/ (Sodium Chloride) 50.5 mls @ 204 mls/hr IV Q6H PRN PRN Reason: Nausea &/or Vomiting Stop: 12/28/18 11:24 Insulin Aspart (Novolog Flexpen) 0 units SC ACHS [facility] Stop: 12/28/18 16:29 Last Admin: 11/30/18 14:01 Dose: 3 units Documented by: Isosorbide Mononitrate (Imdur Extended Rel) 30 mg PO QAM [facility] Stop: 12/29/18 08:59 Last Admin: 11/30/18 08:46 Dose: 30 mg Documented by: Levothyroxine Sodium (Synthroid) 100 mcg PO DAILYBB [facility] Stop: 12/29/18 06:29 Last Admin: 11/30/18 06:08 Dose: 100 mcg Documented by: Lorazepam (Ativan) 0.5 mg PO Q8H PRN PRN Reason: Sedation/Anxiety Stop: 12/28/18 11:24 Magnesium Hydroxide (Milk Of Magnesia) 30 ml PO DAILY PRN PRN Reason: Constipation Stop: 12/28/18 11:24 Metoclopramide HCl (Reglan) 10 mg IV Q6H PRN PRN Reason: Nausea &/or Vomiting Stop: 12/28/18 11:24 Miscellaneous (Pneumococcal Vacc, Do Not Administer) 1 ea N/A PRN PRN PRN Reason: Notification Stop: 12/28/18 11:24 Miscellaneous (Flu Vaccine, Do Not Administer) 1 ea N/A PRN PRN PRN Reason: Notification Stop: 12/28/18 11:24 Miscellaneous (Carbohydrates For Hypoglycemia) 15 - 30 gm PO UD PRN PRN Reason: Hypoglycemia Treatment Stop: 12/28/18 11:34 Naproxen (Naprosyn) 375 mg PO BID [facility] Stop: 12/29/18 20:59 Last Admin: 11/30/18 08:46 Dose: 375 mg Documented by: Ondansetron HCl (Zofran) 4 mg IV Q6H PRN PRN Reason: Nausea &/or Vomiting Stop: 12/28/18 11:24 Ondansetron HCl (Zofran) 4 mg PO Q6H PRN PRN Reason: Nausea Stop: 12/28/18 11:24 Oxycodone HCl (Roxicodone Immediate Rel) 5 - 10 mg PO Q4H PRN PRN Reason: Moderate-Severe Pain Stop: 12/12/18 11:24 Last Admin: 11/30/18 14:06 Dose: 5 mg Documented by: Pantoprazole Sodium (Protonix) 40 mg PO BID [facility]; Protocol Stop: 12/29/18 20:59 Last Admin: 11/30/18 08:46 Dose: 40 mg Documented by: Polyethylene Glycol (Miralax Powder Packet) 17 gm PO Q6 [facility] Stop: 12/29/18 05:59 Last Admin: 11/30/18 12:11 Dose: 17 gm Documented by: Senna/Docusate Sodium (Senokot S) 2 tab PO HS [facility] Stop: 12/28/18 20:59 Last Admin: 11/29/18 20:20 Dose: 2 tab Documented by: Sodium Biphosphate/Sodium Phosphate (Fleet Enema) 132 ml IN ONE PRN PRN Reason: Constipation Stop: 12/28/18 11:24 Tramadol HCl (Ultram) 50 - 100 mg PO Q4H PRN PRN Reason: Moderate-Severe pain Stop: 12/28/18 11:24 Last Admin: 11/28/18 21:29 Dose: 100 mg Documented by: Vitamin D (Vitamin D3) [facility] Stop: 12/29/18 08:59 Last Admin: 11/30/18 08:46 Dose: 2,000 units Documented by:
[2018-11-30] MEDS: TRAMADOL HCL 50 MG TABLET PO PRN (16:16)
[2018-11-30] MEDS: DOCUSATE SODIUM/SENNA 50/8.6MG TAB PO SCH (20:55)
[2018-12-01] MEDS: POLYETHYLENE (MIRALAX) 17 GM PACK PO SCH ×3 (00:02→13:40)
[2018-12-01] MEDS: LEVOTHYROXINE SODIUM 100 MCG TABLET PO SCH (05:45)
[2018-12-01] MEDS: OXYCODONE HCL IR 5 MG TAB (IMMEDIATE RELEASE) PO PRN ×2 (07:50→12:24)
[2018-12-01] MEDS: PANTOprazole 40 MG TAB PO SCH (08:49)
[2018-12-01] MEDS: ISOSORBIDE MONO EXTENDED REL 30 MG TABCR PO SCH (08:50)
[2018-12-01] MEDS: CHOLECALCIFEROL 1,000 UNITS TAB PO SCH (08:50)
[2018-12-01] MEDS: NAPROXEN 375 MG TAB PO SCH (08:50)
[2018-12-01] MEDS: GABAPENTIN 100 MG CAP PO SCH (08:50)
[2018-12-01] MEDS: INSULIN ASPART 100 UNITS/ML 3 ML PEN SC SCH ×2 (08:52→13:40)
--- NOTE | 2018-12-01 12:20 | Orthopedic Progress Note ---
Date of Service December 01, 2018 Assessment & Plan (1) Status post lumbar spine operative procedure for decompression of spinal cord: Patient is status post lumbar decompression fusion doing well and be discharged home today. Present on Admission?: Yes Subjective Patient is doing well back pain and leg pain improved. Physical Exam Vital Signs (Past 24 Hours): Last Vital Signs Temp 36.9 C 12/01/18 07:00 Pulse 83 12/01/18 07:00 Resp 16 12/01/18 07:00 BP 127/79 12/01/18 07:00 Pulse Ox 95 12/01/18 07:00 Physical Exam: Patient is good strength testing appears comfortable.
--- NOTE | 2018-12-01 12:21 | Discharge Summary ---
Date of Service December 01, 2018 Admission HPI Per Admitting Provider This is a 68-year-old female presents with chronic persistent back and bilateral leg pain. After failing extensive course of nonoperative care she is here for surgical intervention. Principal Diagnosis Lumbar spinal stenosis with neurogenic claudication Discharge Data Allergies Allergy/AdvReac Type Severity Reaction Status Date / Time No Known Allergies Allergy Verified 11/28/18 06:17 Consultations 11/28/18 11:25 Consult Case Management - Discharge Planning Routine Consult Hospitalist Routine Procedures Performed Operation Date: 11/28/18 07:45 Actual Procedures p L3-L4, L4-L5 Decompression, L4-L5 Fusion - Jose Armando Dow DO Ordered Studies 11/28/18 07:45 FL fluoroscopy <1hr Routine FL lumbar spine 2-3V Routine Hospital Course (1) Status post lumbar spine operative procedure for decompression of spinal cord: Patient underwent lumbar decompression fusion tolerated this well was taken to the orthopedic floor postoperative. Postop day and when she was up and ambulating nicely progressive postop day #2. TIFFANY drain decreased appropriately. Subsequent discharge home on postop day 3. Discharge orders and instructions found in the chart for further review. Total Time Total Time Spent Total Time Spent (In Minutes): Not applicable Discharge Plan Discharge Items Patient Disposition: Home - Self-Care Reason For Visit: Lumbar Region Radiculopathy Discharge Diagnosis: Lumbar spinal stenosis with radiculopathy Discharge Goals: Improve function Activity: Per 'Additional Instructions' section Non-emergency contact: Primary Care Provider Call non-emergency contact if: you have any medication questions Follow-up/Referrals: Franco Roberts D.O. [Primary Care Provider] - Diet: Regular Addtl Provider Instructions: ACTIVITY RECOMMENDATIONS: SELF CARE INSTRUCTIONS AFTER THORACIC/LUMBAR FUSIONS 1. You may walk to your tolerance. It is good exercise for your legs and back. Expect some back and intermittent leg aches and pains. 2. You may perform "counter-top" level activities (make a sandwich, ben with a project, etc.). 3. No bending or lifting of more than 10 pounds or back twisting of any nature (roll like a log when turning in bed). 4. You may ride in a car for 20-30 minutes at a time. No driving until after your first visit with your doctor. 5. Frequent changes of position and restricting sitting to 30 minutes at a time will help limit the amount of back spasms and stiffness you may experience. 6. You may discontinue the use of ambulatory aids (cane, crutches, etc.) once your strength and confidence allow. 7. You may learning and development administrator the shower and let water strike your incision when you arrive home at least once daily. Do not take a tub bath, sit in a hot tub or go into a swimming pool until after your first recheck in the office. SPECIAL CARE INSTRUCTIONS: VERY IMPORTANT TO READ AND REVIEW A. Your surgical incision has been closed with a cosmetic suture under the skin that will dissolve in about 6 weeks. In 14 days, you can use a pair of clean scissors and cut the suture that is left outside of the skin at the ends of your incision. 1. The small skin tapes can be removed 7 days after surgery if they have not fallen off by that point. 2. You may keep the wound open to air as much as possible to promote healing after post-op day number 5 unless told otherwise by your doctor. 3. If you think the wound looks like it is becoming infected (redness or worsening drainage) and/or you are experiencing fever, chill or worsening back pain and muscle spasms, contact the office so that we may evaluate you as soon as possible. B. Complications are uncommon, but please contact us if you have any signs or symptoms of: 1. wound infection (fever higher than 102.5 degrees F, redness, separation of wound, drainage, or increasing pain from the incision) 2. blood clots in legs (pain, swelling, redness and warmth in legs) 3. urinary tract infection (fever higher than 102.5 degrees F, burning upon urination or increased frequency of urination) 4. nerve problems (inability to walk on your toes or heels, numbness, loss of bowel or bladder control) 5. any other symptoms that concern you C. Please call the office at if you have any concerns or questions about your operation or recovery. D. No smoking! Smoking drastically decreases the chance of a solid fusion. E. Do not take any anti-inflammatory medications (Indocin, Advil, Motrin, Aspirin, Naprosyn, etc.) as these may inhibit the chance of a solid fusion. Tylenol is okay to take for pain. MANAGING PAIN AFTER SPINAL SURGERY 1. Narcotic medication is intended for short-term use and will be provided for surgical pain. Surgical pain usually lasts for a period of 4-6 weeks. Narcotic medication includes Percocet, Vicodin, Darvocet, Tylenol #3 or Lortab. 2. Longer-term pain is more appropriately treated with non-narcotic medication such as Tylenol ES. 3. Muscle spasm is not appropriately treated with narcotics. Muscle relaxers such as Soma, Flexeril or Skelaxin can be used along with Tylenol ES. 4. Remember that we all live with some "aches and pains". This is not unusual or uncommon after an injury or as we get older. a. Back pain is expected and may include muscle spasms for 4 to 6 weeks after surgery. The pain should gradually improve. If the pain worsens for no apparent reason, please contact the office. b. Intermittent leg pain may also be experienced and should not be concerned about unless it worsens for no apparent reason. If so, please contact the office. 5. We will provide appropriate medication within the normal guidelines of their prescribed use. We will also be very cautious and aware of potential abuse and extended duration of patients' medication needs. a. Pain medications are for your comfort and to assist with sleep and rest so that the tissue can heal. They are not provided in order to return to normal activity and should not be used through the day. To do so or worsening pain at night can result from ongoing tissue damage and development of tolerance to the prescribed medicine. 6. Please allow 2-3 days to process refills. Prescriptions will not be mailed but must be picked up at the office. FOLLOW UP VISIT: Keep your scheduled follow-up appointment. Any questions, please call the office at . Prescriptions: New tramadol 50 mg Tablet 50 mg PO Q4H PRN (Reason: Pain, Moderate) Qty: 30 RF: 0 oxycodone 5 mg Tablet 5 mg PO Q4H PRN (Reason: Pain, Severe) Qty: 30 RF: 0 Continued metformin 500 mg Tablet 500 mg PO BID RF: 0 isosorbide mononitrate 30 mg Tablet Extended Release 24 Hr 30 mg PO QAM RF: 0 levothyroxine 100 mcg Tablet 100 mcg PO QAM RF: 0 gabapentin 100 mg Capsule 100 mg PO TID RF: 0 Vimovo 500-20 mg Tablet,Ir,Delayed Rel,Biphasic 1 tab PO BID RF: 0 acetaminophen [Tylenol Extra Strength] 500 mg Tablet 500 mg PO Q6H PRN (Reason: Pain) RF: 0 cholecalciferol (vitamin D3) [Vitamin D3] 2,000 unit Capsule 2,000 unit PO QAM RF: 0 Stand-Alone Forms: [facility] Discharge Orders: Discharge Order (Routine); Ordered 12/01/18 Ordered By: Jose Armando Dow Admission Data Admit Date/Time: 11/28/18 10:07 Attending Provider: Jose Armando Dow Admit Provider: Jose Armando Dow Primary Care Provider: Franco Roberts. Other Providers: Darlin Sky Service: Surgical Services Other Interventions: Discharge Summary Assessment (RN) Last Done: 12/01/18 10:34
== END 2018-12-01 13:47 | disposition home or self-care (01) | DRG 454 ==
LOC: ASU 05:59 → 3E 10:07

== ENCOUNTER 2022-07-17 07:56 | Inpatient (IN) ==
--- NOTE | 2022-06-20 16:15 | PAT Medication Instructions ---
Medication Instructions Date of Service June 20, 2022 Home Medications acetaminophen 500 mg tablet (Tylenol Extra Strength) 500 mg PO Q6H PRN Pain cholecalciferol (vitamin D3) 50 mcg (2,000 unit) capsule (Vitamin D3) 2,000 unit PO QAM isosorbide mononitrate 30 mg tablet,extended release 24 hr 30 mg PO QAM levothyroxine 100 mcg tablet 100 mcg PO QAM metformin 500 mg tablet 500 mg PO BID gabapentin 300 mg capsule 300 mg PO HS metoprolol succinate 25 mg tablet,extended release 24 hr 25 mg PO QAM naproxen 500 mg tablet 500 mg PO BID semaglutide 0.25 mg or 0.5 mg (2 mg/1.5 mL) subcutaneous pen injector (Ozempic) 0.5 mg subcut WK Continue as directed semaglutide 0.25 mg or 0.5 mg (2 mg/1.5 mL) subcutaneous pen injector (Ozempic) 0.5 mg subcut WK ASK your surgeon for instructions naproxen 500 mg tablet 500 mg PO BID DO NOT take the morning of surgery cholecalciferol (vitamin D3) 50 mcg (2,000 unit) capsule (Vitamin D3) 2,000 unit PO QAM metformin 500 mg tablet 500 mg PO BID Take morning of surgery With a small sip of water, OTHERWISE NOTHING TO EAT OR DRINK AFTER MIDNIGHT: acetaminophen 500 mg tablet (Tylenol Extra Strength) 500 mg PO Q6H PRN Pain (if needed) isosorbide mononitrate 30 mg tablet,extended release 24 hr 30 mg PO QAM levothyroxine 100 mcg tablet 100 mcg PO QAM metoprolol succinate 25 mg tablet,extended release 24 hr 25 mg PO QAM Take evening before surgery acetaminophen 500 mg tablet (Tylenol Extra Strength) 500 mg PO Q6H PRN Pain (if needed) metformin 500 mg tablet 500 mg PO BID gabapentin 300 mg capsule 300 mg PO HS Other Notes If you have any questions please call us at [phone] or [phone] or [phone] or [phone]
--- NOTE | 2022-06-28 12:22 | Anesthesiology Consultation ---
Date of Service June 28, 2022 Assessment & Plan (1) Encounter for pre-operative examination: Plan - check BSG am DOS. - pt reports upcoming echo 07/09/22 and cardiology clearance with Dr. aCno. - PONV: Discussed with Dr. Giang who advised that further discussion can occur between patient and assigned anesthesiologist DOS given newer treatment options such as Emend vs scop patch. Chart Review Chart Review: Pending: Refer to Additional Notes / Consult section and Patient seen in Pre Admission Testing Teaching & Discussion Pre-Anesthesia Teaching/Discussion Notes: Instructed NPO after midnight before surgery, except medications with 15 cc of water. Medication instructions provided according to the PAT guidelines. History Surgery Operation Date: 07/17/22 07:45 Proposed Procedures p L2-L4 Decompression, L2-L5 Fusion, L4-L5 Hardware Removal Spinal Cord Monitoring - Jose Armando Dow DO Height/Weight Height: 5 ft 5 in Weight: 83.9 kg Allergies Allergy/AdvReac Type Severity Reaction Status Date / Time No Known Allergies Allergy Verified 06/20/22 12:31 Medications Home Medications Medication Instructions Recorded Confirmed Last Taken acetaminophen 500 mg tablet 500 mg PO Q6H PRN Pain 10/27/18 06/20/22 11/27/18 19:00 (Tylenol Extra Strength) cholecalciferol (vitamin D3) 50 2,000 unit PO QAM 10/27/18 06/20/22 1 Week Ago mcg (2,000 unit) capsule (Vitamin ~11/21/18 D3) isosorbide mononitrate 30 mg 30 mg PO QAM 10/27/18 06/20/22 11/28/18 04:30 tablet,extended release 24 hr levothyroxine 100 mcg tablet 100 mcg PO QAM 10/27/18 06/20/22 11/28/18 04:30 metformin 500 mg tablet 500 mg PO BID 10/27/18 06/20/22 11/27/18 18:00 gabapentin 300 mg capsule 300 mg PO HS 06/20/22 06/20/22 Unknown metoprolol succinate 25 mg 25 mg PO QAM 06/20/22 06/20/22 Unknown tablet,extended release 24 hr naproxen 500 mg tablet 500 mg PO BID 06/20/22 06/20/22 Unknown semaglutide 0.25 mg or 0.5 mg (2 0.5 mg subcut WK 06/20/22 06/20/22 Unknown mg/1.5 mL) subcutaneous pen injector (Ozempic) Past Medical History Medical History (Updated 06/28/22 @ 12:20 by Merle Chavez PA-C) Chronic back pain Diabetes mellitus, type 2 NIDDM GERD (gastroesophageal reflux disease) controlled, stable per pt H/O paroxysmal supraventricular tachycardia follows with Dr Cano. History of COVID-19 2020. treated at [facility] Emergency Room and triggered a flare up in her SVT and developed covid-19 pneumonia. no inpatient stay. doing well now. History of endometriosis Hypothyroidism Spinal stenosis Spondylolisthesis Patient denies h/o stroke, seizures, heart attack, heart failure, HTN, blood clots or blood transfusions. Exercise / Class Metabolic Activity II 4-5 Yardwork/Stairs/Walk up hill (denies CP or SOB with 1 FOS) Past Family History Family History Father Family history of diabetes mellitus Mother Family history of diabetes mellitus Brother Family history of diabetes mellitus Sister Family history of diabetes mellitus Other No family history of adverse response to anesthesia Past Surgical History Surgical History (Updated 06/28/22 @ 12:15 by Merle Chavez PA-C) History of abdominal surgery OPEN; R/T ENDOMETRIOSIS History of anesthesia reaction SLOW TO WAKE History of cardiac cath 2017 - [facility] - SVT - NO STENTS/ANGIOPLASTY - FOLLOWS W/ DR. RAMOS ([facility]) History of colonoscopy History of esophagogastroduodenoscopy (EGD) History of toe surgery LEFT GREAT TOE History of tonsillectomy Nausea and vomiting after administration of anesthetic agent needing scop patch S/P epidural steroid injection Status post lumbar spine operative procedure for decompression of spinal cord 12/01/18: Grade 1 view, MAC 3, ETT 7. Past Anesthesia History No Hx of Anesthesia Complications, No Family Hx of Anesthesia Complications and Other (slow to wake) History of PONV No Hx of Motion Sickness and History of PONV (received scop patch in past) Social History Smoking Status: Never smoker Do You Dip or Chew Tobacco: No Hx Alcohol Use: Yes Alcohol type: wine alcohol intake frequency: holidays/special occasions only Hx Substance Use: No substance use type: does not use Review of Systems Patient denies chest pain, shortness of breath, dyspnea on exertion, snoring, witnessed apneas, fever, chills, cough, wheezing, or palpitations. Physical Exam Vital Signs Vitals BP 127/79 P 79 SP02 98% on RA RESP 18 Physical Full cervical extension range of motion without pain TMD 3.5 finger breadths Dentition: intact, denies chipped or loose teeth, caps/crowns, implants or bridges Lungs: normal respiratory effort. Clear throughout to auscultation, no adventitious breath sounds Cardiac: regular rate and rhythm, no murmurs noted Carotid arteries: negative bruit bilat Lab Results Anesthesia Preop Results Results Anesthesia Widget: WBC 7.03 K/ul (4.8-10.8) 06/28/22 Hgb 12.3 g/dl (12.0-16.0) 06/28/22 Hct 37.7 % (34.1-44.9) 06/28/22 Plt 305 K/uL (130-400) 06/28/22 Na 139 mmol/L (136-145) 06/28/22 K 3.6 mmol/L (3.5-5.1) 06/28/22 Cl 104 mmol/L (98-107) 06/28/22 CO2 28 mmol/L (21-32) 06/28/22 BUN 18 mg/dl (6-23) 06/28/22 Creat 0.79 mg/dl (0.6-1.2) 06/28/22 Glucose Level 87 mg/dl (70-99(Fasting)) 06/28/22 PT 10.7 Seconds (9.0-12.0) 06/28/22 PTT 27.3 Seconds (21.0-31.0) 06/28/22 INR 1.0 (0.9-1.1) 06/28/22 HA1c 5.6 % (4.5-5.6) 06/28/22 Urine Color Yellow 06/28/22 Urine Appearance Clear (Clear) 06/28/22 Urine pH 5.5 (4.5-7.5) 06/28/22 Urine Specific [place] 1.004 (1.000-1.030) 06/28/22 Urine Protein Negative (Negative) 06/28/22 Urine Glucose (UA) Negative (Negative) 06/28/22 Urine Ketones Negative (Negative) 06/28/22 Urine Blood Negative (Negative) 06/28/22 Urine Nitrite Negative (Negative) 06/28/22 Urine Bilirubin Negative (Negative) 06/28/22 Urine Urobilinogen Negative (Negative) 06/28/22 Urine Leukocyte Esterase Trace (Negative) H 06/28/22 Urine WBC (Auto) 1-5 /hpf (0-5) 06/28/22 Urine RBC (Auto) 0-4 /hpf (0-4) 06/28/22 Urine Hyaline Casts (Auto) 0 /lpf (0-5) 06/28/22 Urine Epithelial Cells (Auto) 5-10 /lpf (0-5) H 06/28/22 Urine Bacteria (Auto) Negative (Negative) 06/28/22 Blood Type O Positive 06/28/22 Antibody Screen NEGATIVE 06/28/22 Testing Electrocardiogram Date: 06/28/22 NSR, rate 67 bpm Chest X-Ray Date: 06/28/22 Lung volumes are normal. Lungs are clear. There is no pneumothorax or pleural effusion. Cardiac size is normal. Mediastinal contours are normal. There is no evidence for pulmonary edema. IMPRESSION: No acute cardiopulmonary findings. Cardiac Catheterization Date: 01/25/17 Left main: no significant disease LAD: mild luminal irregularities up to 10% proximally Cx: mid 30% disease RCA: mid 20% disease EF 60-65% Maximize medical therapy COVID-19 Risk Screen Screening Information COVID-19 Screen Date: 06/28/22 Exposure 21 Days Family/Household +COVID Last 21 Days: No Exposure 10 Days Any COVID Exposure Last 10 Days: No Symptoms Last 10 Days Experienced COVID Sx Last 10 Days: No + COVID 0-90 Days COVID + in Last 0-90 Days: No
[~2022-07-17 07:56] MED LIST: ACETAMINOPHEN 500 MG TAB PO SCH; CeleBREX 200 MG CAP PO SCH; GABAPENTIN 300 MG CAP PO SCH; LR 15ML/HR IV SCH; ceFAZolin 2000MG 2,000 MG/15 ML SYR IV SCH
[2022-07-17] MEDS ORDERED: GLYCOPYRROLATE 0.2 MG/ML VIAL ONE ×2 (08:39→13:44)
[2022-07-17] MEDS ORDERED: DEXAMETHASONE SOD INJ 4 MG/ML VIAL ONE (08:39)
[2022-07-17] MEDS ORDERED: fentaNYL citrate 100 MCG/2 ML VIAL ONE (08:39)
[2022-07-17] MEDS ORDERED: PROPOFOL IV EMULSION 10 MG/ML 20 ML VIAL IV ONE (08:39)
[2022-07-17] MEDS ORDERED: ONDANSETRON INJ 2 MG/ML 2 ML VIAL ONE (08:39)
[2022-07-17] MEDS ORDERED: NEOSTIGMINE METHYLSULFATE 1 MG/ML 10ML VIAL ONE (08:39)
[2022-07-17] MEDS ORDERED: MIDAZOLAM HCL 1 MG/ML 2ML VIAL ONE (08:39)
[2022-07-17] MEDS ORDERED: HYDROmorphone INJ 2 MG/ML SYR/VIAL IV PRN (09:11)
[2022-07-17] MEDS ORDERED: ATROPINE SULFATE 0.1 MG/ML 10ML SYR IV PRN (09:11)
[2022-07-17] MEDS ORDERED: ePHEDrine sulfate 50 MG/ML AMP IV PRN (09:11)
[2022-07-17] MEDS ORDERED: ONDANSETRON INJ 2 MG/ML 2 ML VIAL IV PRN ×2 (09:11→16:11)
[2022-07-17] MEDS ORDERED: PROMETHAZINE HCL 12.5 MG in SODIUM CHLORIDE 0.9% 50 ML IV PRN ×2 (09:11→16:11)
[2022-07-17] MEDS ORDERED: SCOPOLAMINE 1 MG TDSY TD ONE ×2 (09:25→09:26)
--- NOTE | 2022-07-17 10:32 | History & Physical Bridge Note ---
Date of Service July 17, 2022 History & Physical Bridge Note I have examined the patient, reviewed the History & Physical and in the interval since the performance of the History & Physical I have noted the following changes of clinical significance: no changes noted
--- NOTE | 2022-07-17 10:33 | History & Physical Report ---
Date of Service July 17, 2022 Assessment & Plan (1) Neurogenic claudication due to lumbar spinal stenosis: Plan: L2-L4 decompression, L2-L5 fusion, L4-L5 hardware removal History of Present Illness Chief Complaint: Back and bilateral leg pain Primary Care Provider: Franco Roberts This is a 72-year-old female who presents with chronic persistent back and bilateral leg pain. Failing extensive course of nonoperative care she is here for surgical invention. Allergies Allergy/AdvReac Type Severity Reaction Status Date / Time No Known Allergies Allergy Verified 07/17/22 08:35 Home Medications Medication Instructions Recorded Confirmed Type acetaminophen 500 mg tablet 500 mg PO Q6H PRN Pain 10/27/18 07/17/22 History (Tylenol Extra Strength) cholecalciferol (vitamin D3) 50 2,000 unit PO QAM 10/27/18 07/17/22 History mcg (2,000 unit) capsule (Vitamin D3) isosorbide mononitrate 30 mg 30 mg PO QAM 10/27/18 07/17/22 History tablet,extended release 24 hr levothyroxine 100 mcg tablet 100 mcg PO QAM 10/27/18 07/17/22 History metformin 500 mg tablet 500 mg PO BID 10/27/18 07/17/22 History gabapentin 300 mg capsule 300 mg PO HS 06/20/22 07/17/22 History metoprolol succinate 25 mg 25 mg PO QAM 06/20/22 07/17/22 History tablet,extended release 24 hr naproxen 500 mg tablet 500 mg PO BID 06/20/22 07/17/22 History semaglutide 0.25 mg or 0.5 mg (2 0.5 mg subcut WK 06/20/22 07/17/22 History mg/1.5 mL) subcutaneous pen injector (Ozempic) Past Med/Surg History Medical History Chronic back pain Diabetes mellitus, type 2 NIDDM GERD (gastroesophageal reflux disease) controlled, stable per pt H/O paroxysmal supraventricular tachycardia follows with Dr Cano. History of COVID-19 2019. treated at [facility] Emergency Room and triggered a flare up in her SVT and developed covid-19 pneumonia. no inpatient stay. doing well now. History of endometriosis Hypothyroidism Spinal stenosis Spondylolisthesis Surgical History History of abdominal surgery OPEN; R/T ENDOMETRIOSIS History of anesthesia reaction SLOW TO WAKE History of cardiac cath 2017 - [facility] - SVT - NO STENTS/ANGIOPLASTY - FOLLOWS W/ DR. RAMOS ([facility]) History of colonoscopy History of esophagogastroduodenoscopy (EGD) History of toe surgery LEFT GREAT TOE History of tonsillectomy Nausea and vomiting after administration of anesthetic agent needing scop patch S/P epidural steroid injection Status post lumbar spine operative procedure for decompression of spinal cord 12/01/18: Grade 1 view, MAC 3, ETT 7. Family History Father Family history of diabetes mellitus Mother Family history of diabetes mellitus Brother Family history of diabetes mellitus Sister Family history of diabetes mellitus Other No family history of adverse response to anesthesia Social History Smoking Status: Never smoker Second Hand Exposure: No; Do You Dip or Chew Tobacco: No; Tobacco Cessation Education Requested by Patient: No Hx Alcohol Use: Yes Alcohol type: wine Hx Substance Use: No Preferred Language: Yi Communication Ability: Effective Test Development Engineer Required: No Beliefs That Will Affect Care: None Current Living Situation: Spouse Other Information That Helps Us Care for You: No Feels Safe at Home: Yes Safety Concerns: Feels Safe At This Time Assistive Devices: Glasses Physical Exam Physical Exam: Patient is alert and oriented Heart regular rhythm Lungs clear Results & Data Results & Data ([facility]) Vital Signs (Past 12 Hours) Vital Signs Temp Pulse Resp BP Pulse Ox O2 Del Method 07/17/22 08:15 36.7 C 78 20 140/75 98 Room Air
[2022-07-17] MEDS ORDERED: ceFAZolin 330 MG/ML 1 GM VIAL ONE (10:52)
[2022-07-17] MEDS ORDERED: ROCURONIUM BROMIDE 10 MG/ML 5 ML VIAL IV ONE (11:31)
[2022-07-17] MEDS ORDERED: HYDROmorphone INJ 2 MG/ML SYR/VIAL ONE (11:31)
[2022-07-17] MEDS ORDERED: LIDOCAINE 2% MPF LOCAL 5 ML VIAL INFIL ONE (11:31)
[2022-07-17] MEDS ORDERED: FLOSEAL HEMOSTATIC MATRIX 10ML TOP ONE (11:31)
[2022-07-17] MEDS ORDERED: BUPIVACAINE/EPINEPHRINE 0.25% 1:200,000 30 ML VIAL INFIL ONE (11:36)
[2022-07-17] MEDS ORDERED: ceFAZolin 330 MG/ML 1 GM VIAL IR ONE (11:37)
[2022-07-17] MEDS ORDERED: PHENYLEPHRINE HCL 10 MG/ML VIAL ONE (11:57)
[2022-07-17] MEDS ORDERED: ePHEDrine sulfate 50 MG/ML AMP ONE (11:57)
--- NOTE | 2022-07-17 13:44 | Operative Report ---
Post Operative Report Pre & Post Diagnosis Operation Date: 07/17/22 10:05 Pre-Op Diagnosis: Spinal Stenosis, Lumbar with Neurogenic Claudication Post-Op Diagnosis: Spinal Stenosis, Lumbar with Neurogenic Claudication I identified the patient and participated in the time-out.: Yes Procedure Operation Date: 07/17/22 10:05 Actual Procedures #1 removal of posterior instrumentation L4-5. #2 exploration of fusion L4-5. #3 lumbar decompression bilateral medial facetectomies and foraminotomies L1-L2 L2-L3 L3-L4. #4 posterior spinal fusion L2-L4. #5 placement posterior instrumentation L2-L5. #6 interbody fusion L2-L3 L3-L4. #7 placement of Spira 10 x 26 mm at L2-L3 and 13 x 26 mm at L3-L4. #8 placement locally harvested morselized autograft in the posterior lateral gutters. #9 placement of I factor combined with V toss in the interbody space and posterior lateral gutters. Surgeon Jose Armando Dow, DO Call Center Support Consultant Adelaida Thakkar Estimated Blood Loss 600 Findings See Below The patient is 5 foot 5 weighing over 81 kg with a BMI of 30. This combined with an EBL of greater than 600 cc created significant technical difficulty required deeper retractors longer instruments in order to perform her procedure. This had at least 50% increased operative time. Specimens None Indications This is a 72-year-old female presents above-mentioned diagnosis after failed extensive course of care she is here for problems procedure. Description of Procedure Patient was met with identified informed consent obtained. Patient was then taken to the operative suite underwent ablation placed in a prone position the [place] table top Lucien frame. All bony prominences well-padded eyes inspected to ensure no external pressure placed upon them. This point the lumbar spine was prepped and draped in normal sterile fashion. Sharp dissection with the assistance pericardial performed down to and exposing the lamina transverse processes of L2-L3-L4 and instrumentation L4-L5 bilaterally. Then proceeded move the hardware bilaterally at L4-5 explored the fusion mass noting it to be mature and intact. Then performed a complete laminectomy of L3 L2 and partial laminectomy of L1 including bilateral medial facetectomies and foraminotomies addressing severe spinal stenosis. Pedicle screws then placed in L to L3-L4-L5 and S1 levels bilaterally with assistance of fluoroscopy and appropriately sized josseline placed. By way of entrance foraminal approach on the right complete discectomy of L3-L4 was performed endplates curetted to subcortical bleeding bone and a 13 x 26 mm spiral cage with I factor tapped in position. Then proceeded to L2-L3 and again by way of a transforaminal approach and right complete discectomy performed endplates curetted to subcortical bone and a 10 x 26 mm spiral cage with I factor tapped the position. The rods were then locked in final position bilaterally but the transverse processes of L2-L3 and L4 burred to subcortical bleeding bone. I factor model V toss and locally harvested morselized autograft was then placed in the posterior gutters. 15 round TIFFANY inserted. The incision was then closed with 1 Vicryl in the fascia 2-0 Vicryl subcutaneously and 4 Monocryl for final skin closure. Steri-Strip sterile dressings placed. Patient was awakened taken to PACU in stable condition. Please note spinal cord monitoring was last at the procedure no changes noted. Lastly Adelaida Thakkar was present at the entire surgeon while the patient positioning complex portions of the surgery and fascial closure. I attest to the content of the Intraoperative Record and any orders documented therein. Any exceptions are noted below.
--- NOTE | 2022-07-17 13:47 | Fluoroscopy Report ---
FL lumbar spine 2-3V CLINICAL HISTORY: Hardware removal. Decompression and fusion. COMPARISON STUDY: Fluoroscopic images of the lumbar spine November 28, 2018. FLUOROSCOPY TIME: 22 seconds. FLUOROSCOPIC IMAGES: 4 FINDINGS: Previous L4-L5 discectomy is noted. Interval L2-L3 and L3-L4 discectomies are noted. Swimming Pool Installer ior decompression is noted. There are bilateral pedicle screws at the L2, L3, L4 and L5 levels. Hardw are is intact. IMPRESSION: Fluoroscopy provided during hardware removal, multilevel discectomy and L2-L5 fusion. ACT 112: Negative or not required by law. Electronically signed by: Pranav Vega M.D. 07/17/2022 1:46 PM
[2022-07-17] MEDS: fentaNYL citrate 100 MCG/2 ML VIAL IV PRN ×3 (14:17→15:34)
--- NOTE | 2022-07-17 14:54 | Anesthesiology Progress Note ---
Date of Service July 17, 2022 Anesthesia Post Procedure Vital Signs Vital Signs: Temp Pulse Pulse Resp BP Pulse Ox O2 Del Method 07/17/22 14:48 103/61 07/17/22 14:45 36.3 C L 67 13 92/60 L 99 Nasal Cannula 07/17/22 14:35 68 12 98/59 L 98 Nasal Cannula 07/17/22 14:25 68 12 100/58 L 98 Nasal Cannula 07/17/22 14:15 64 12 112/62 100 Oxymask 07/17/22 14:05 83 13 118/75 100 Oxymask 07/17/22 13:58 36.4 C L 84 12 112/65 100 Oxymask 07/17/22 08:15 36.7 C 78 20 140/75 98 Room Air O2 Flow Rate 07/17/22 14:48 07/17/22 14:45 4 07/17/22 14:35 4 07/17/22 14:25 4 07/17/22 14:15 9 07/17/22 14:05 9 07/17/22 13:58 9 07/17/22 08:15 Pain Intensity Bilateral Lower Back: Pain Intensity: 8 Back: Pain Intensity: 4 Transfer of Care Handoff Completed per policy Notes Mental Status: alert / awake / arousable and participated in evaluation Patient Amnestic to Procedure: Yes Nausea / Vomiting: adequately controlled Pain: adequately controlled Airway Patency, RR, SpO2: stable & adequate BP & HR: stable & adequate Hydration State: stable & adequate Anesthetic Complications: no major complications apparent
[2022-07-17] MEDS ORDERED: SOD PHOSPHATE/SOD BIPHOSPHATE ENEMA 132 ML BTL PR PRN (16:11)
[2022-07-17] MEDS ORDERED: NALOXONE HCL 0.4 MG/1 ML VIAL/CARP IV PRN (16:11)
[2022-07-17] MEDS ORDERED: ACETAMINOPHEN 1,000 MG/100 ML VIAL IV PRN (16:11)
[2022-07-17] MEDS ORDERED: LORazepam 0.5 MG in SYRINGE 0 ML IV PRN (16:11)
[2022-07-17] MEDS ORDERED: HYDROmorphone INJ 1 MG/ML SYRINGE IV PRN (16:11)
[2022-07-17] MEDS ORDERED: MAGNESIUM HYDROXIDE SUSP 30 ML UDC PO PRN (16:11)
[2022-07-17] MEDS ORDERED: ONDANSETRON 4 MG OD TAB PO PRN (16:11)
[2022-07-17] MEDS ORDERED: hydrOXYzine HCl 25 MG TAB PO PRN (16:11)
[2022-07-17] MEDS ORDERED: traMADol HCL 50 MG TABLET PO PRN (16:11)
[2022-07-17] MEDS ORDERED: bisacodyL 10 MG SUPP PR PRN (16:11)
[2022-07-17] MEDS ORDERED: ALUMINUM/MAGNESIUM SUSP 30 ML UDC PO PRN (16:11)
[2022-07-17] MEDS ORDERED: METOCLOPRAMIDE HCL INJ 5 MG/ML 2 ML VIAL IV PRN (16:11)
[2022-07-17] MEDS ORDERED: PHARMACY GLYCEMIC MGMT CONSULT PRN (16:11)
[2022-07-17] MEDS ORDERED: FAMOTIDINE 20 MG TAB PO PRN (16:11)
[2022-07-17] MEDS ORDERED: diphenhydrAMINE Capsule 25 MG CAP PO PRN (16:11)
[2022-07-17] MEDS ORDERED: LORazepam 0.5 MG TAB PO PRN (16:11)
[2022-07-17] MEDS ORDERED: HYDROmorphone INJ 0.5 MG/0.5 ML SYR IV PRN (16:11)
[2022-07-17] MEDS ORDERED: GLUCOSE 10 TAB/TUBE PO PRN (16:45)
[2022-07-17] MEDS ORDERED: CARBOHYDRATES FOR HYPOGLYCEMIA PO PRN (16:45)
[2022-07-17] MEDS ORDERED: GLUCOSE 40% GEL 15 GM TUBE PO PRN (16:45)
[2022-07-17] MEDS ORDERED: DEXTROSE 50% 50 ML SYRINGE IV PRN (16:45)
[2022-07-17] MEDS ORDERED: GLUCAGON FOR INJ 1 MG VIAL IM PRN (16:45)
--- NOTE | 2022-07-17 17:31 | Hospitalist Consultation ---
Date of Consultation July 17, 2022 History of Present Illness Reason for Consultation: Post-op medical management Requesting Physician: Jose Armando Dow DO Allergies Allergy/AdvReac Type Severity Reaction Status Date / Time No Known Allergies Allergy Verified 07/17/22 08:35 Home Medications Medication Instructions Recorded Confirmed Type acetaminophen 500 mg tablet 500 mg PO Q6H PRN Pain 10/27/18 07/17/22 History (Tylenol Extra Strength) cholecalciferol (vitamin D3) 50 2,000 unit PO QAM 10/27/18 07/17/22 History mcg (2,000 unit) capsule (Vitamin D3) isosorbide mononitrate 30 mg 30 mg PO QAM 10/27/18 07/17/22 History tablet,extended release 24 hr levothyroxine 100 mcg tablet 100 mcg PO QAM 10/27/18 07/17/22 History metformin 500 mg tablet 500 mg PO BID 10/27/18 07/17/22 History gabapentin 300 mg capsule 300 mg PO HS 06/20/22 07/17/22 History metoprolol succinate 25 mg 25 mg PO QAM 06/20/22 07/17/22 History tablet,extended release 24 hr naproxen 500 mg tablet 500 mg PO BID 06/20/22 07/17/22 History semaglutide 0.25 mg or 0.5 mg (2 0.5 mg subcut WK 06/20/22 07/17/22 History mg/1.5 mL) subcutaneous pen injector (Ozempic) Patient History Medical History Chronic back pain Diabetes mellitus, type 2 NIDDM GERD (gastroesophageal reflux disease) controlled, stable per pt H/O paroxysmal supraventricular tachycardia follows with Dr Cano. History of COVID-19 2019. treated at [facility] Emergency Room and triggered a flare up in her SVT and developed covid-19 pneumonia. no inpatient stay. doing well now. History of endometriosis Hypothyroidism Spinal stenosis Spondylolisthesis Surgical History History of abdominal surgery OPEN; R/T ENDOMETRIOSIS History of anesthesia reaction SLOW TO WAKE History of cardiac cath 2017 - [facility] - SVT - NO STENTS/ANGIOPLASTY - FOLLOWS W/ DR. RAMOS ([facility]) History of colonoscopy History of esophagogastroduodenoscopy (EGD) History of toe surgery LEFT GREAT TOE History of tonsillectomy Nausea and vomiting after administration of anesthetic agent needing scop patch S/P epidural steroid injection Status post lumbar spine operative procedure for decompression of spinal cord 12/01/18: Grade 1 view, MAC 3, ETT 7. Family History Father Family history of diabetes mellitus Mother Family history of diabetes mellitus Brother Family history of diabetes mellitus Sister Family history of diabetes mellitus Other No family history of adverse response to anesthesia Social History Smoking Status: Never smoker Second Hand Exposure: No; Do You Dip or Chew Tobacco: No; Tobacco Cessation Education Requested by Patient: No Hx Alcohol Use: Yes Alcohol type: wine Hx Substance Use: No Preferred Language: [place]ar[place] Communication Ability: Effective Film Editor Required: No Beliefs That Will Affect Care: None Current Living Situation: Spouse Other Information That Helps Us Care for You: No Feels Safe at Home: Yes Safety Concerns: Feels Safe At This Time Assistive Devices: Glasses Results & Data Results & Data ([facility]) Vital Signs (Past 12 Hours) Vital Signs Temp Pulse Pulse Resp BP BP Pulse Ox 07/17/22 17:21 36.5 C 88 103/68 96 07/17/22 16:58 84 14 106/57 L 99 07/17/22 16:30 72 12 115/67 99 07/17/22 16:15 61 16 104/63 99 07/17/22 16:00 36 C L 63 15 98/57 L 96 07/17/22 15:30 64 12 102/75 98 07/17/22 15:15 76 18 106/68 97 07/17/22 15:00 68 19 105/57 L 99 07/17/22 14:48 103/61 07/17/22 14:45 36.3 C L 67 13 92/60 L 99 07/17/22 14:35 68 12 98/59 L 98 07/17/22 14:25 68 12 100/58 L 98 07/17/22 14:15 64 12 112/62 100 07/17/22 14:05 83 13 118/75 100 07/17/22 13:58 36.4 C L 84 12 112/65 100 07/17/22 08:15 36.7 C 78 20 140/75 98 O2 Del Method O2 Flow Rate 07/17/22 17:21 Room Air 07/17/22 16:58 Nasal Cannula 2 07/17/22 16:30 Nasal Cannula 2 07/17/22 16:15 Nasal Cannula 2 07/17/22 16:00 Nasal Cannula 2 07/17/22 15:30 Nasal Cannula 2 07/17/22 15:15 Nasal Cannula 2 07/17/22 15:00 Nasal Cannula 4 07/17/22 14:48 07/17/22 14:45 Nasal Cannula 4 07/17/22 14:35 Nasal Cannula 4 07/17/22 14:25 Nasal Cannula 4 07/17/22 14:15 Oxymask 9 07/17/22 14:05 Oxymask 9 07/17/22 13:58 Oxymask 9 07/17/22 08:15 Room Air PG Care Time/CCT Total # of Minutes Spent Total Time Spent with Patient: Total time spent is greater than 50% in coordination of care (as documented) at patient's floor/unit and/or counseling patient: Coding
[2022-07-17] MEDS: CHECK SCOPOLAMINE PATCH PLACEMENT SCH ×2 (17:47→23:26)
--- NOTE | 2022-07-17 17:53 | Hospitalist Consultation ---
Date of Consultation July 17, 2022 Assessment & Plan (1) S/P spinal surgery: This is a 72yo F with a PMH of DM II, hypothyroidism, SVT and other medical problems listed below who is POD #0 s/p removal of posterior instrumentation L4- 5, exploration of fusion L4-5, lumbar decompression bilateral medial facet ectomies and foraminotomies L1-L2 L2-L3 L3-L4 and posterior spinal fusion L2-L4 by Dr. Dow. POD #0 s/p removal of posterior instrumentation L4-5, exploration of fusion L4- 5, lumbar decompression bilateral medial facetectomies and foraminotomies L1-L2 L2-L3 L3-L4 and posterior spinal fusion L2-L4 by Dr. Dow Per ortho for pain control, wound care, anticoagulation and activities Monitor H&H (pre-op hgb 12.3) with daily CBC Continue incentive spirometry, PT/OT when appropriate (2) Diabetes mellitus, type 2: A1c 5.6 pre-operatively in Jun 2022 Hold home agents Expect elevated BSGs while admitted due to scheduled daily Decadron Glycemic consult placed by primary service BSG AC HS (3) SVT (supraventricular tachycardia): Follows with Dr Cano in [place]. HR 80s post-operatively. Continue Toprol (4) Hypothyroidism (acquired): Continue levothyroxine PCP: Alejandra Dispo: Per primary service Patient seen in collaboration with Dr. Mcqueen. Please see addendum. Plan Attending addendum: The patient was seen and examined in medical floor She is a status post L2-L4 decompression fusion Has been complaining of back pain without radiculopathy pain Denies any other symptoms On examination: No apparent distress at rest Hemodynamically stable Physical examination otherwise unremarkable as above Her labs, imaging studies and EKG reviewed Status post lumbar decompression and fusion remains stable Her other significant medical condition remained stable to Agree with assessment and plan as outlined above by MICKIE Mcghee Dr [facility] Hospitalist History of Present Illness Reason for Consultation: post op med mgmt Attending Physician: Jose Armando Dow, DO History of Present Illness This is a 72yo F with a PMH of DM II, hypothyroidism, SVT and other medical problems listed below who is POD #0 s/p removal of posterior instrumentation L4- 5, exploration of fusion L4-5, lumbar decompression bilateral medial facetectomies and foraminotomies L1-L2 L2-L3 L3-L4 and posterior spinal fusion L2-L4 by Dr. Dow. Patient is feeling well postoperatively. Endorses some surgical site discomfort. Denies any lower extremity paresthesias or pain. No fever, chills, headache, chest pain, shortness of breath, nausea, vomiting, abdominal pain, dysuria, diarrhea or constipation. No recent medication changes. Allergies Allergy/AdvReac Type Severity Reaction Status Date / Time No Known Allergies Allergy Verified 07/17/22 08:35 Home Medications Medication Instructions Recorded Confirmed Type acetaminophen 500 mg tablet 500 mg PO Q6H PRN Pain 10/27/18 07/17/22 History (Tylenol Extra Strength) cholecalciferol (vitamin D3) 50 2,000 unit PO QAM 10/27/18 07/17/22 History mcg (2,000 unit) capsule (Vitamin D3) isosorbide mononitrate 30 mg 30 mg PO QAM 10/27/18 07/17/22 History tablet,extended release 24 hr levothyroxine 100 mcg tablet 100 mcg PO QAM 10/27/18 07/17/22 History metformin 500 mg tablet 500 mg PO BID 10/27/18 07/17/22 History gabapentin 300 mg capsule 300 mg PO HS 06/20/22 07/17/22 History metoprolol succinate 25 mg 25 mg PO QAM 06/20/22 07/17/22 History tablet,extended release 24 hr naproxen 500 mg tablet 500 mg PO BID 06/20/22 07/17/22 History semaglutide 0.25 mg or 0.5 mg (2 0.5 mg subcut WK 06/20/22 07/17/22 History mg/1.5 mL) subcutaneous pen injector (Ozempic) Patient History Medical History (Updated 07/17/22 @ 18:01 by Irish Kincaid PA-C) Chronic back pain Diabetes mellitus, type 2 NIDDM GERD (gastroesophageal reflux disease) controlled, stable per pt H/O paroxysmal supraventricular tachycardia follows with Dr Cano. History of COVID-19 2020. treated at [facility] and triggered a flare up in her SVT and developed covid-19 pneumonia. no inpatient stay. doing well now. History of endometriosis Hypothyroidism Spinal stenosis Spondylolisthesis Surgical History (Updated 07/17/22 @ 18:01 by Irish Kincaid PA-C) History of abdominal surgery OPEN; R/T ENDOMETRIOSIS History of anesthesia reaction SLOW TO WAKE History of cardiac cath 2017 - [facility] - SVT - NO STENTS/ANGIOPLASTY - FOLLOWS W/ DR. RAMOS ([facility]) History of colonoscopy History of esophagogastroduodenoscopy (EGD) History of toe surgery LEFT GREAT TOE History of tonsillectomy Nausea and vomiting after administration of anesthetic agent needing scop patch S/P epidural steroid injection Family History Father Family history of diabetes mellitus Mother Family history of diabetes mellitus Brother Family history of diabetes mellitus Sister Family history of diabetes mellitus Other No family history of adverse response to anesthesia Social History Smoking Status: Never smoker Second Hand Exposure: No; Do You Dip or Chew Tobacco: No; Tobacco Cessation Education Requested by Patient: No Hx Alcohol Use: Yes Alcohol type: wine Hx Substance Use: No Preferred Language: Samoan Communication Ability: 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 Physical Exam Physical Exam: General Appearance: WD/WN, vitals as above, NAD, sitting up in bed, pleasant, conversing easily Head: normocephalic, atraumatic Eyes: normal inspection, PERRL ENT: external ear and nose normal, oropharynx normal Neck: normal visual inspection, trachea midline Respiratory: normal respiratory effort, lungs clear to auscultation. No accessory muscle use Cardiovascular: regular rate, rhythm, no murmur, normal peripheral pulses, no BLE edema Abdomen/GI: normal bowel sounds, soft, nontender, no hepatosplenomegaly Extremities/Musculoskeletal: + Spinal dressing c/d/i. TIFFANY draing visualized. No cyanosis or clubbing, extremities motor strength 5/5 Neurologic: PERRL, no face palsy, no dysarthria, CN's II-XI intact bilaterally and moves all extremities Psychiatric: A+Ox3, euthymic affect Skin: no rashes, normal color, warm/dry Results & Data Results & Data ([facility]) Vital Signs (Past 12 Hours) Vital Signs Temp Pulse Pulse Resp BP BP Pulse Ox 07/17/22 17:21 36.5 C 88 103/68 96 07/17/22 16:58 84 14 106/57 L 99 07/17/22 16:30 72 12 115/67 99 07/17/22 16:15 61 16 104/63 99 07/17/22 16:00 36 C L 63 15 98/57 L 96 07/17/22 15:30 64 12 102/75 98 07/17/22 15:15 76 18 106/68 97 07/17/22 15:00 68 19 105/57 L 99 07/17/22 14:48 103/61 07/17/22 14:45 36.3 C L 67 13 92/60 L 99 07/17/22 14:35 68 12 98/59 L 98 07/17/22 14:25 68 12 100/58 L 98 07/17/22 14:15 64 12 112/62 100 07/17/22 14:05 83 13 118/75 100 07/17/22 13:58 36.4 C L 84 12 112/65 100 07/17/22 08:15 36.7 C 78 20 140/75 98 O2 Del Method O2 Flow Rate 07/17/22 17:21 Room Air 07/17/22 16:58 Nasal Cannula 2 07/17/22 16:30 Nasal Cannula 2 07/17/22 16:15 Nasal Cannula 2 07/17/22 16:00 Nasal Cannula 2 07/17/22 15:30 Nasal Cannula 2 07/17/22 15:15 Nasal Cannula 2 07/17/22 15:00 Nasal Cannula 4 07/17/22 14:48 07/17/22 14:45 Nasal Cannula 4 07/17/22 14:35 Nasal Cannula 4 07/17/22 14:25 Nasal Cannula 4 07/17/22 14:15 Oxymask 9 07/17/22 14:05 Oxymask 9 07/17/22 13:58 Oxymask 9 07/17/22 08:15 Room Air
[2022-07-17] MEDS: SODIUM CHLORIDE 0.9% 1000ML 1,000 ML IV SCH (17:57)
[2022-07-17] MEDS: INSULIN ASPART PER UNIT SC SCH ×2 (18:02→22:43)
[2022-07-17] MEDS: DOCUSATE SODIUM/SENNA 50/8.6MG TAB PO SCH (20:53)
[2022-07-17] MEDS: oxyCODONE HCL IR 5 MG TAB (IMMEDIATE RELEASE) PO PRN (20:54)
[2022-07-17] MEDS: GABAPENTIN 300 MG CAP PO SCH (20:54)
[2022-07-17] MEDS ORDERED: LANTUS PER UNIT CHARGE SQ SCH (21:00)
[2022-07-17] MEDS: ceFAZolin 2000MG 2,000 MG/15 ML SYR IV SCH (21:36)
[2022-07-18] MEDS: ceFAZolin 2000MG 2,000 MG/15 ML SYR IV SCH (03:24)
[2022-07-18] MEDS: SODIUM CHLORIDE 0.9% 1000ML 1,000 ML IV SCH (03:28)
[2022-07-18] MEDS: ACETAMINOPHEN 500 MG TAB PO PRN ×2 (03:29→15:54)
[2022-07-18] MEDS: POLYETHYLENE (MIRALAX) 17 GM PACK PO SCH ×4 (06:07→23:33)
[2022-07-18] MEDS: LEVOTHYROXINE SODIUM 100 MCG TABLET PO SCH (06:07)
[2022-07-18] MEDS: CHECK SCOPOLAMINE PATCH PLACEMENT SCH ×3 (08:11→23:33)
[2022-07-18] MEDS ORDERED: LANTUS PER UNIT CHARGE SQ SCH (09:00)
[2022-07-18] MEDS: dexAMETHasone 6 MG in SYRINGE 0 ML IV SCH (09:01)
[2022-07-18] MEDS: ISOSORBIDE MONO EXTENDED REL 30 MG TABCR PO SCH (09:02)
[2022-07-18] MEDS: CHOLECALCIFEROL 1,000 UNITS 25 MCG TAB PO SCH (09:02)
[2022-07-18] MEDS: METOPROLOL SUCC 25MG EXT REL TAB PO SCH (09:02)
[2022-07-18] MEDS: INSULIN ASPART PER UNIT SC SCH ×4 (09:03→21:16)
[2022-07-18] MEDS: oxyCODONE HCL IR 5 MG TAB (IMMEDIATE RELEASE) PO PRN ×2 (09:15→21:16)
--- NOTE | 2022-07-18 09:51 | Pharmacy Report ---
Pharmacy Glycemic Short Note 2 - Date of Service July 18, 2022 - Glycemic Short BSG Results (Last 24 hours): 07/17/22 07/17/22 07/17/22 14:07 16:39 18:01 POC Glucose 114 H 143 H 185 H 07/17/22 07/17/22 07/18/22 20:46 22:38 08:19 POC Glucose 160 H 140 H 106 H OUTPATIENT ANTIDIABETIC REGIMEN: * Metformin 500 mg PO BIDM * Ozempic 0.5 mg SC weekly () HbA1c: 5.6% (06/28/22) ASSESSMENT: * BEATRIS is a 72 year old female POD #1 s/p lumbar decompression fusion * Received 6 mg IV dexamethasone in OR, ordered 6 mg IV ongoing x 3 days starting this morning * BSGs reasonably well-controlled postoperatively with fasting BSG of 106 mg/dL this morning * Received 12 units of Lantus to cover steroids (~0.15 unit/kg) * Plan to continue current insulin orders today PLAN FOR INPATIENT GLYCEMIC CONTROL: * Hold outpatient oral diabetes medications * Basal insulin * Lantus 12 units SQ daily with IV dexamethasone * Bolus insulin * NovoLog per scale ACHS or Q6hrs while NPO * Goal Range: Low 110 mg/dL - High 140 mg/dL * Correction Factor: 25 mg/dL/unit * Nutritional / Prandial insulin per carb ratio of 1 unit per 9 grams CHO consumed
[2022-07-18 09:57] LABS: Basophils # (auto) 0.02 K/uL (0-0.2); Basophils % (auto) 0.2 %; Eosinophils # (auto) 0.01 K/uL (0-0.50); Eosinophils % (auto) 0.1 %; Hematocrit (blood only) 25.2 % (34.1-44.9); Hemoglobin 8.4 g/dl (12.0-16.0); Immature Granulocytes # (auto) 0.03 K/uL (0.00-0.02); Immature Granulocytes % (auto) 0.3 %; Lymphocytes # (auto) 1.52 K/uL (1.2-3.4); Lymphocytes % (auto) 16.2 %; Mean Corpuscular Hemoglobin 30.7 pg (25.0-34.0); Mean Corpuscular Hgb Conc 33.3 g/dL (32.0-36.0); Mean Platelet Volume 9.6 fL (9.4-12.3); Monocytes # (auto) 0.57 K/uL (0.24-0.82); Monocytes % (auto) 6.1 %; Neutrophils # (auto) 7.22 K/uL (1.4-6.5); Neutrophils % (auto) 77.1 %; Platelet Count 234 K/uL (130-400); RDW Coefficient of Variation 14.3 % (11.5-14.5); RDW Standard Deviation 47.7 fL (36.4-46.3); Red Blood Count 2.74 M/uL (3.93-5.22); White Blood Count 9.37 K/ul (4.8-10.8)
[2022-07-18 10:42] LABS: BUN Creatinine Ratio 24.2 (10-20); Calcium 8.3 mg/dl (8.5-10.1); Creatinine Clr Calc Pharmacy 83.7 ml/min; Est GFR (African American) 103.7 ml/min; Est GFR (Non-African American) 89.5 ml/min; Potassium 4.1 mmol/L (3.5-5.1)
--- NOTE | 2022-07-18 12:43 | Orthopedic Progress Note ---
Date of Service July 18, 2022 Assessment & Plan (1) Neurogenic claudication due to lumbar spinal stenosis: Plan: With this and will continue physical therapy monitor TIFFANY operatively discharge of next few days. Admission and Anticipated Discharge Date Admission Date: July 17, 2022 Subjective Patient's back pain is controlled leg pain markedly improved Physical Exam Physical Exam: Patient is comfortable. She is constricted testing. Results & Data ([facility]) Vital Signs (Past 12 Hours) Vital Signs Temp Pulse Pulse Resp BP Pulse Ox O2 Del Method 07/18/22 07:53 36.7 C 75 16 107/74 98 Room Air 07/18/22 03:00 36.8 C 75 18 108/71 96 Room Air
--- NOTE | 2022-07-18 17:31 | Hospitalist Progress Note ---
Date of Service July 18, 2022 Assessment & Plan (1) S/P spinal surgery: Plan: Patient is a 72 yr female with H/O DM II, hypothyroidism, SVT and other medical problems listed below who is POD #0 s/p removal of posterior instrumentation L4- 5, exploration of fusion L4-5, lumbar decompression bilateral medial facetectomies and foraminotomies L1-L2 L2-L3 L3-L4 and posterior spinal fusion L2-L4 by Dr. Dow. Neurogenic claudication due to lumbar spinal stenosis S/P removal of posterior instrumentation L4-5, exploration of fusion L4-5, lumbar decompression bilateral medial facetectomies and foraminotomies L1-L2 L2- L3 L3-L4 and posterior spinal fusion L2-L4 by Dr. Dow Postoperative acute blood loss anemia Continue wound care, pain control, anticoagulation as per orthopedics Monitor CBC Bowel regimen to prevent constipation Continue incentive spirometry Continue PT/OT (2) Diabetes mellitus, type 2: Plan: A1c 5.6 pre-operatively in Jun 2022 Hold home agents Continue Insulin per protocol Monitor BGs (3) SVT (supraventricular tachycardia): Plan: Follows with Dr Cano in [place]. Continue Metoprolol (4) Hypothyroidism (acquired): Plan: Continue levothyroxine DVT Px: As per Ortho Code Status Full Code Plan Attending addendum: The patient was seen and examined in medical floor She is a status post L2-L4 decompression fusion Has been complaining of back pain without radiculopathy pain Denies any other symptoms On examination: No apparent distress at rest Hemodynamically stable Physical examination otherwise unremarkable as above Her labs, imaging studies and EKG reviewed Status post lumbar decompression and fusion remains stable Her other significant medical condition remained stable to Agree with assessment and plan as outlined above by MICKIE Mcghee Dr [facility] Hospitalist Admission and Anticipated Discharge Date Admission Date: July 17, 2022 Subjective Patient is seen and examined at bedside Back pain at surgical site is controlled Offers no complaints today Denies any chest pain, shortness breath, dizziness, nausea, abdominal pain + Flatus, no BM Review of Systems Review of Systems: All systems reviewed & are unremarkable except as noted in Subjective Physical Exam Physical Exam: Physical Exam: Vitals signs as noted above General Appearance:Moderately built and nourished, no apparent distress Head: normocephalic, Atraumatic Eyes: normal inspection, EOMI Neck: supple, Trachea midline Respiratory/Chest: Normal breath sounds, CTA, No accessory muscle use Cardiovascular: S1, S2, No murmur Abdomen/GI:Soft, Non tender, Bowel sounds present Back: + Surgical site in dressing, +drain Extremities/Musculoskeletal:normal inspection, no edema Neurologic/Psych:AAOX3, grossly no focal neurological deficits Skin: normal color, warm Results & Data Results & Data ([facility]) Vital Signs (Past 12 Hours) Vital Signs Temp Pulse Pulse Resp BP BP Pulse Ox 07/18/22 15:43 36.7 C 69 16 115/59 L 95 07/18/22 13:34 36.9 C 72 16 101/64 93 07/18/22 07:53 36.7 C 75 16 107/74 98 O2 Del Method 07/18/22 15:43 Room Air 07/18/22 13:34 Room Air 07/18/22 07:53 Room Air Laboratory Results Short CBC 07/18/22 Range/Units 08:59 WBC 9.37 (4.8-10.8) K/ul Hgb 8.4 L (12.0-16.0) g/dl Hct 25.2 L (34.1-44.9) % Plt Count 234 (130-400) K/uL BMP 07/18/22 08:59 Sodium 133 L Potassium 4.1 Chloride 101 Carbon Dioxide 27 BUN 16 Creatinine 0.66 Glucose 127 H Calcium 8.3 L
[2022-07-18] MEDS: DOCUSATE SODIUM/SENNA 50/8.6MG TAB PO SCH (21:15)
[2022-07-18] MEDS: GABAPENTIN 300 MG CAP PO SCH (21:16)
[2022-07-19] MEDS: LEVOTHYROXINE SODIUM 100 MCG TABLET PO SCH (05:48)
[2022-07-19] MEDS: POLYETHYLENE (MIRALAX) 17 GM PACK PO SCH ×4 (05:48→23:12)
[2022-07-19] MEDS: oxyCODONE HCL IR 5 MG TAB (IMMEDIATE RELEASE) PO PRN ×2 (05:52→22:00)
[2022-07-19] MEDS: ACETAMINOPHEN 500 MG TAB PO PRN ×2 (08:01→16:18)
--- NOTE | 2022-07-19 08:25 | Orthopedic Progress Note ---
Date of Service July 19, 2022 Assessment & Plan (1) Neurogenic claudication due to lumbar spinal stenosis: Plan: At this time continue physical therapy monitor TIFFANY output anticipate discharge home tomorrow. Admission and Anticipated Discharge Date Admission Date: July 17, 2022 Subjective Patient's back pain is controlled leg pain markedly improved Physical Exam Physical Exam: Patient is in the chair at the bedside. Is good strength testing. Appears comfortable. Results & Data ([facility]) Vital Signs (Past 12 Hours) Vital Signs Temp Pulse Resp BP Pulse Ox O2 Del Method 07/19/22 07:30 36.8 C 71 16 106/71 97 Room Air 07/18/22 21:20 36.8 C 72 18 104/64 97 Room Air
[2022-07-19] MEDS ORDERED: LANTUS PER UNIT CHARGE SQ SCH (09:00)
[2022-07-19 09:10] LABS: Hematocrit (blood only) 26.8 % (34.1-44.9); Hemoglobin 8.7 g/dl (12.0-16.0); Mean Corpuscular Hemoglobin 30.5 pg (25.0-34.0); Mean Corpuscular Hgb Conc 32.5 g/dL (32.0-36.0); Mean Platelet Volume 9.6 fL (9.4-12.3); Platelet Count 236 K/uL (130-400); RDW Coefficient of Variation 14.5 % (11.5-14.5); RDW Standard Deviation 50.4 fL (36.4-46.3); Red Blood Count 2.85 M/uL (3.93-5.22); White Blood Count 9.83 K/ul (4.8-10.8)
[2022-07-19] MEDS: ISOSORBIDE MONO EXTENDED REL 30 MG TABCR PO SCH (09:21)
[2022-07-19] MEDS: METOPROLOL SUCC 25MG EXT REL TAB PO SCH (09:21)
[2022-07-19] MEDS: dexAMETHasone 6 MG in SYRINGE 0 ML IV SCH (09:22)
[2022-07-19] MEDS: CHOLECALCIFEROL 1,000 UNITS 25 MCG TAB PO SCH (09:22)
[2022-07-19] MEDS: INSULIN ASPART PER UNIT SC SCH ×4 (09:22→21:01)
[2022-07-19] MEDS: CHECK SCOPOLAMINE PATCH PLACEMENT SCH ×3 (09:24→23:11)
[2022-07-19 09:37] LABS: BUN Creatinine Ratio 21.3 (10-20); Calcium 8.5 mg/dl (8.5-10.1); Creatinine Clr Calc Pharmacy 73.7 ml/min; Est GFR (African American) 93.6 ml/min; Est GFR (Non-African American) 80.8 ml/min; Potassium 3.4 mmol/L (3.5-5.1)
[2022-07-19] MEDS ORDERED: POTASSIUM CHLORIDE CRTAB 20 MEQ TABCR PO ONE (11:01)
--- NOTE | 2022-07-19 15:15 | Hospitalist Progress Note ---
Date of Service July 19, 2022 Assessment & Plan (1) S/P spinal surgery: Plan: Patient is a 72 yr female with H/O DM II, hypothyroidism, SVT and other medical problems listed below who is POD #0 s/p removal of posterior instrumentation L4- 5, exploration of fusion L4-5, lumbar decompression bilateral medial facetectomies and foraminotomies L1-L2 L2-L3 L3-L4 and posterior spinal fusion L2-L4 by Dr. Dow. Neurogenic claudication due to lumbar spinal stenosis S/P removal of posterior instrumentation L4-5, exploration of fusion L4-5, lumbar decompression bilateral medial facetectomies and foraminotomies L1-L2 L2- L3 L3-L4 and posterior spinal fusion L2-L4 by Dr. Dow Postoperative acute blood loss anemia Continue wound care, pain control, anticoagulation as per orthopedics Monitor CBC Bowel regimen to prevent constipation Continue incentive spirometry Continue PT/OT (2) Diabetes mellitus, type 2: Plan: A1c 5.6 pre-operatively in Jun 2022 Hold home agents Continue Insulin per protocol Monitor BGs (3) SVT (supraventricular tachycardia): Plan: Follows with Dr Cano in [place]. Continue Metoprolol (4) Hypothyroidism (acquired): Plan: Continue levothyroxine DVT Px: As per Ortho Code Status Full Code Admission and Anticipated Discharge Date Admission Date: July 17, 2022 Supervising Physician Co-Signing Physician Notes Patient is seen and examined at bedside. Back pain at surgical site is controlled. Had physical therapy earlier today. Had small bowel movement. Denies any chest pain, shortness of breath, dizziness, nausea, abdominal pain. On exam patient is moderately built and nourished, no apparent distress, normocephalic atraumatic, EOMI, normal breath sounds, clear to auscultation, S1- S2, no murmur, no pedal edema, abdomen soft, nontender, normal bowel sounds, back: Surgical site in dressing, + drain, alert, awake, oriented, grossly no focal deficits. Patient is being managed for neurogenic claudication due to lumbar spinal stenosis s/p back surgery. Continue PT OT, bowel regimen to prevent constipation. DVT prophylaxis as per primary team. Continue insulin per protocol for the management of diabetes mellitus. I personally reviewed the record. Patient is interviewed and examined at bedside. Patient's care is coordinated with Irish Sanjiv PA-C. Please refer to the documentation above for details of patient's presentation and for discussion of other issues. Subjective Patient seen and examined in 318. Feeling better today and ambulating with PT and in the hallways with walker without issue. No nausea or vomiting. Tolerating diet. Urinating and had a small bowel movement. No fever, chills, headache, chest pain, SOB, N/V, abdominal pain, dysuria or diarrhea. Review of Systems Review of Systems: At least ten systems reviewed and negative except as noted in the HPI. Physical Exam Physical Exam: Gen: WD/WN, NAD, sitting in bedside chair, A&Ox3 HEENT: Normocephalic, atraumatic, conjunctivae moist, sclerae anicteric, mucous membranes moist Lung: Clear to Auscultation bilaterally, no wheezes/rales/rhonchi Heart: Regular rate, regular rhythm, no murmurs, rubs, or gallops Abdomen: Soft, NT, ND +BS x 4 Extremities: + Spinal dressing c/d/i. TIFFANY drain visualized. No edema Skin: Warm, no rash Results & Data Results & Data ([facility]) Vital Signs (Past 12 Hours) Vital Signs Temp Pulse Resp BP Pulse Ox O2 Del Method 07/19/22 10:31 36.6 C 62 16 106/66 97 Room Air 07/19/22 07:30 36.8 C 71 16 106/71 97 Room Air Laboratory Results Short CBC 07/19/22 Range/Units 08:40 WBC 9.83 (4.8-10.8) K/ul Hgb 8.7 L (12.0-16.0) g/dl Hct 26.8 L (34.1-44.9) % Plt Count 236 (130-400) K/uL BMP 07/19/22 08:40 Sodium 136 Potassium 3.4 L Chloride 103 Carbon Dioxide 26 BUN 16 Creatinine 0.75 Glucose 133 H Calcium 8.5 Diagnostic Findings Lumbar Spine X-Ray 07/17/22 10:05 FL lumbar spine 2-3V CLINICAL HISTORY: Hardware removal. Decompression and fusion. COMPARISON STUDY: Fluoroscopic images of the lumbar spine November 28, 2018. FLUOROSCOPY TIME: 22 seconds. FLUOROSCOPIC IMAGES: 4 FINDINGS: Previous L4-L5 discectomy is noted. Interval L2-L3 and L3-L4 discectomies are noted. Posterior decompression is noted. There are bilateral pedicle screws at the L2, L3, L4 and L5 levels. Hardware is intact. IMPRESSION: Fluoroscopy provided during hardware removal, multilevel discectomy and L2-L5 fusion. ACT 112: Negative or not required by law. Electronically signed by: Pranav Vega M.D. 07/17/2022 1:46 PM
[2022-07-19] MEDS: GABAPENTIN 300 MG CAP PO SCH (21:03)
[2022-07-19] MEDS: DOCUSATE SODIUM/SENNA 50/8.6MG TAB PO SCH (21:04)
[2022-07-20] MEDS: LEVOTHYROXINE SODIUM 100 MCG TABLET PO SCH (06:15)
[2022-07-20] MEDS: POLYETHYLENE (MIRALAX) 17 GM PACK PO SCH (06:16)
[2022-07-20] MEDS: CHOLECALCIFEROL 1,000 UNITS 25 MCG TAB PO SCH (08:15)
[2022-07-20] MEDS: dexAMETHasone 6 MG in SYRINGE 0 ML IV SCH (08:15)
[2022-07-20] MEDS: ISOSORBIDE MONO EXTENDED REL 30 MG TABCR PO SCH (08:15)
[2022-07-20] MEDS: METOPROLOL SUCC 25MG EXT REL TAB PO SCH (08:16)
[2022-07-20] MEDS: ACETAMINOPHEN 500 MG TAB PO PRN (08:20)
[2022-07-20] MEDS ORDERED: metFORMIN HCL 500 MG TAB PO SCH (08:30)
[2022-07-20 08:58] LABS: BUN Creatinine Ratio 23.6 (10-20); Calcium 9.1 mg/dl (8.5-10.1); Creatinine Clr Calc Pharmacy 76.8 ml/min; Est GFR (African American) 98.3 ml/min; Est GFR (Non-African American) 84.9 ml/min; Potassium 3.7 mmol/L (3.5-5.1)
[2022-07-20] MEDS: INSULIN ASPART PER UNIT SC SCH ×2 (09:10→12:53)
--- NOTE | 2022-07-20 10:28 | Discharge Summary ---
Date of Service July 20, 2022 Admission HPI Per Admitting Provider This is a 72-year-old female who presents with chronic persistent back and bilateral leg pain. Failing extensive course of nonoperative care she is here for surgical invention. Principal Diagnosis Lumbar spinal stenosis with neurogenic claudication Discharge Data Allergies Allergy/AdvReac Type Severity Reaction Status Date / Time No Known Allergies Allergy Verified 07/17/22 08:35 Consultations 07/17/22 16:11 Consult Hospitalist Routine Procedures Performed Operation Date: 07/17/22 10:05 Actual Procedures p L2-L4 Decompression, L2-L5 Fusion, Spinal Cord Monitoring(Not Applicable) - Jose Armando Dow DO s L4-L5 Hardware Removal,(Not Applicable) - Jose Armando Dow DO Ordered Studies 07/17/22 10:05 FL lumbar spine 2-3V Routine Hospital Course (1) Neurogenic claudication due to lumbar spinal stenosis: Plan Patient with lumbar decompression fusion tolerated this well was taken to orthopedic floor postoperatively postop day 1 she was up and ambulating progressed to postop day #2 on postop day #3 TIFFANY drain decreased appropriately. Excellent strength testing. Safely discharged home. Discharge orders instructions from the chart for further view. Total Time Total Time Spent Total Time Spent (In Minutes): 20 minutes Discharge Plan Discharge Items Patient Disposition: Home - Self-Care Reason For Visit: Spinal Stenosis, Lumbar with Neurogenic Claudicati Discharge Diagnosis: Lumbar spinal stenosis with neurogenic claudication Activity: As commented below Non-emergency contact: Primary Care Provider Call non-emergency contact if: you have any medication questions Follow-up/Referrals: Franco Roberts D.O. [Primary Care Provider] - Diet: Regular Addtl Attending Provider Instructions: ACTIVITY RECOMMENDATIONS: SELF CARE INSTRUCTIONS AFTER THORACIC/LUMBAR FUSIONS 1. You may walk to your tolerance. It is good exercise for your legs and back. Expect some back and intermittent leg aches and pains. 2. You may perform "counter-top" level activities (make a sandwich, ben with a project, etc.). 3. No bending or lifting of more than 10 pounds or back twisting of any nature (roll like a log when turning in bed). 4. You may ride in a car for 20-30 minutes at a time. No driving until after your first visit with your doctor. 5. Frequent changes of position and restricting sitting to 30 minutes at a time will help limit the amount of back spasms and stiffness you may experience. 6. You may discontinue the use of ambulatory aids (cane, crutches, etc.) once your strength and confidence allow. 7. You may skin washer the shower and let water strike your incision when you arrive home at least once daily. Do not take a tub bath, sit in a hot tub or go into a swimming pool until after your first recheck in the office. SPECIAL CARE INSTRUCTIONS: VERY IMPORTANT TO READ AND REVIEW A. Your surgical incision has been closed with a cosmetic suture under the skin that will dissolve in about 6 weeks. In 14 days, you can use a pair of clean scissors and cut the suture that is left outside of the skin at the ends of your incision. 1. The small skin tapes can be removed 7 days after surgery if they have not fallen off by that point. 2. You may keep the wound open to air as much as possible to promote healing after post-op day number 5 unless told otherwise by your doctor. 3. If you think the wound looks like it is becoming infected (redness or worsening drainage) and/or you are experiencing fever, chill or worsening back pain and muscle spasms, contact the office so that we may evaluate you as soon as possible. B. Complications are uncommon, but please contact us if you have any signs or symptoms of: 1. wound infection (fever higher than 102.5 degrees F, redness, separation of wound, drainage, or increasing pain from the incision) 2. blood clots in legs (pain, swelling, redness and warmth in legs) 3. urinary tract infection (fever higher than 102.5 degrees F, burning upon urination or increased frequency of urination) 4. nerve problems (inability to walk on your toes or heels, numbness, loss of bowel or bladder control) 5. any other symptoms that concern you C. Please call the office at if you have any concerns or questions about your operation or recovery. D. No smoking! Smoking drastically decreases the chance of a solid fusion. E. Do not take any anti-inflammatory medications (Indocin, Advil, Motrin, Aspirin, Naprosyn, etc.) as these may inhibit the chance of a solid fusion. Tylenol is okay to take for pain. MANAGING PAIN AFTER SPINAL SURGERY 1. Narcotic medication is intended for short-term use and will be provided for surgical pain. Surgical pain usually lasts for a period of 4-6 weeks. Narcotic medication includes Percocet, Vicodin, Darvocet, Tylenol #3 or Lortab. 2. Longer-term pain is more appropriately treated with non-narcotic medication such as Tylenol ES. 3. Muscle spasm is not appropriately treated with narcotics. Muscle relaxers such as Soma, Flexeril or Skelaxin can be used along with Tylenol ES. 4. Remember that we all live with some "aches and pains". This is not unusual or uncommon after an injury or as we get older. a. Back pain is expected and may include muscle spasms for 4 to 6 weeks after surgery. The pain should gradually improve. If the pain worsens for no apparent reason, please contact the office. b. Intermittent leg pain may also be experienced and should not be concerned about unless it worsens for no apparent reason. If so, please contact the office. 5. We will provide appropriate medication within the normal guidelines of their prescribed use. We will also be very cautious and aware of potential abuse and extended duration of patients' medication needs. a. Pain medications are for your comfort and to assist with sleep and rest so that the tissue can heal. They are not provided in order to return to normal activity and should not be used through the day. To do so or worsening pain at night can result from ongoing tissue damage and development of tolerance to the prescribed medicine. 6. Please allow 2-3 days to process refills. Prescriptions will not be mailed but must be picked up at the office. FOLLOW UP VISIT: Keep your scheduled follow-up appointment. Any questions, please call the office at . Pending Studies at Discharge: No Stand-Alone Forms: My [employer], Smoking Cessation Medications and DC Order Prescriptions: New oxycodone 5 mg tablet 5 mg PO Q6H PRN (Reason: pain, severe) Qty: 30 0RF tramadol 50 mg tablet 50 mg PO Q6H PRN (Reason: pain, moderate) Qty: 30 0RF Continued metformin 500 mg Tablet 500 mg PO BID isosorbide mononitrate 30 mg Tablet Extended Release 24 Hr 30 mg PO QAM levothyroxine 100 mcg Tablet 100 mcg PO QAM acetaminophen [Tylenol Extra Strength] 500 mg Tablet 500 mg PO Q6H PRN (Reason: Pain) cholecalciferol (vitamin D3) [Vitamin D3] 2,000 unit Capsule 2,000 unit PO QAM gabapentin 300 mg Capsule 300 mg PO HS metoprolol succinate 25 mg Tablet Extended Release 24 Hr 25 mg PO QAM naproxen 500 mg Tablet 500 mg PO BID Ozempic 0.25 mg or 0.5 mg(2 mg/1.5 mL) Pen Injector 0.5 mg SUBCUT WK Discharge Orders: Discharge Order (Routine); Ordered 07/20/22 Ordered By: Jose Armando Dow Admission Data Admit Date/Time: 07/17/22 13:48 Attending Provider: Jose Armando Dow Admit Provider: Jose Armando Dow Primary Care Provider: Franco Roberts. Other Providers: Darlin Sky ; Luca Marquez ; Irish Kincaid
--- NOTE | 2022-07-20 12:33 | Hospitalist Progress Note ---
Date of Service July 20, 2022 Assessment & Plan (1) S/P spinal surgery: Plan: Patient is a 72 yr female with H/O DM II, hypothyroidism, SVT and other medical problems listed below who is POD #0 s/p removal of posterior instrumentation L4- 5, exploration of fusion L4-5, lumbar decompression bilateral medial facetectomies and foraminotomies L1-L2 L2-L3 L3-L4 and posterior spinal fusion L2-L4 by Dr. Dow. Neurogenic claudication due to lumbar spinal stenosis S/P removal of posterior instrumentation L4-5, exploration of fusion L4-5, lumbar decompression bilateral medial facetectomies and foraminotomies L1-L2 L2- L3 L3-L4 and posterior spinal fusion L2-L4 by Dr. Dow Postoperative acute blood loss anemia Continue wound care, pain control, anticoagulation as per orthopedics Monitor CBC Bowel regimen to prevent constipation Continue incentive spirometry Continue PT/OT (2) Diabetes mellitus, type 2: Plan: A1c 5.6 pre-operatively in Jun 2022 Hold home agents Continue Insulin per protocol Monitor BGs (3) SVT (supraventricular tachycardia): Plan: Follows with Dr Cano in [place]. Continue Metoprolol (4) Hypothyroidism (acquired): Plan: Continue levothyroxine DVT Px: As per Ortho Code Status Full Code Ready to discharge today by primary service. Admission and Anticipated Discharge Date Admission Date: July 17, 2022 Supervising Physician Co-Signing Physician Notes Patient is seen and examined at bedside. No new complaints. Eager to get discharged. Back pain at surgical site is controlled. Drain removed. Had PT evaluation. Denies any chest pain, shortness of breath, dizziness, nausea, abdominal pain. On exam patient is moderately built and nourished, no apparent distress, normocephalic atraumatic, EOMI, normal breath sounds, clear to auscultation, S1-S2, no murmur, no pedal edema, abdomen soft, nontender, normal bowel sounds, back: Surgical site in dressing, alert, awake, oriented, grossly no focal deficits. Patient is being managed for neurogenic claudication due to lumbar spinal stenosis s/p back surgery. Continue PT OT, bowel regimen to prevent constipation. DVT prophylaxis as per primary team. Continue insulin per protocol for the management of diabetes mellitus. Advised to follow-up with PCP in 1 week upon discharge. I personally reviewed the record. Patient is interviewed and examined at bedside. Patient's care is coordinated with Irish Kincaid PA-C. Please refer to the documentation above for details of patient's presentation and for discussion of other issues. Subjective Patient seen and examined in 318. Feeling better today and ambulating with PT and in the hallways with walker without issue. No nausea or vomiting. Tolerating diet. Urinating and had a small bowel movement. No fever, chills, headache, chest pain, SOB, N/V, abdominal pain, dysuria or diarrhea. Review of Systems Review of Systems: At least ten systems reviewed and negative except as noted in the HPI. Physical Exam Physical Exam: Gen: WD/WN, NAD, sitting in bedside chair, A&Ox3 HEENT: Normocephalic, atraumatic, conjunctivae moist, sclerae anicteric, mucous membranes moist Lung: Clear to Auscultation bilaterally, no wheezes/rales/rhonchi Heart: Regular rate, regular rhythm, no murmurs, rubs, or gallops Abdomen: Soft, NT, ND +BS x 4 Extremities: + Spinal dressing c/d/i. TIFFANY drain visualized. No edema Skin: Warm, no rash Results & Data Results & Data ([facility]) Vital Signs (Past 12 Hours) Vital Signs Temp Pulse Resp BP Pulse Ox O2 Del Method 07/20/22 07:43 36.5 C 55 L 16 126/67 98 Room Air Laboratory Results [facility] 07/20/22 08:22 Sodium 139 Potassium 3.7 Chloride 104 Carbon Dioxide 28 BUN 17 Creatinine 0.72 Glucose 94 Calcium 9.1 Diagnostic Findings Lumbar Spine X-Ray 07/17/22 10:05 FL lumbar spine 2-3V CLINICAL HISTORY: Hardware removal. Decompression and fusion. COMPARISON STUDY: Fluoroscopic images of the lumbar spine November 28, 2018. FLUOROSCOPY TIME: 22 seconds. FLUOROSCOPIC IMAGES: 4 FINDINGS: Previous L4-L5 discectomy is noted. Interval L2-L3 and L3-L4 discectomies are noted. Posterior decompression is noted. There are bilateral pedicle screws at the L2, L3, L4 and L5 levels. Hardware is intact. IMPRESSION: Fluoroscopy provided during hardware removal, multilevel discectomy and L2-L5 fusion. ACT 112: Negative or not required by law. Electronically signed by: Pranav Vega M.D. 07/17/2022 1:46 PM
== END 2022-07-20 13:54 | disposition home or self-care (01) | DRG 454 ==
LOC: ASU 07:56 → 3E 13:48